=== PATIENT | male | born 1970 | race Caucasian/White ===

== ENCOUNTER 2021-01-28 08:03 | Inpatient (IN) | payer BC ==
[~2021-01-28] VITALS: Ht 180.3 cm; Wt 104.3 kg
[~2021-01-28 08:03] MED LIST: ADDERALL 5 MG TA5 M1 PO; BACTRIM DS TAB1 EACH PO; CYMBALTA60 MG PO; HYDROCODON-ACE1 EAC7 PO; HYDROCODONE-AP1 EAC6 PO; IBUPROFEN 800800 M1 PO; MOBIC7.5 M1 PO; NORCO 5-325 TA1 EACH PO; PRILOSEC20 MG PO; ROBAXIN 750 MG750 MG PO; WELLBUTRIN SR150 MG PO
[2021-01-28 08:16] VITALS: BP 137/87
[2021-01-28 08:52] LABS: ABSOLUTE LYMPHOCYTES 0.8 thou/uL (0.8-5.3); ABSOLUTE MONOCYTES 0.4 thou/uL (0.0-1.2); ABSOLUTE NEUTROPHILS 5.6 thou/uL (1.6-8.1); BASOPHILS 0.3 %; EOSINOPHILS 0.1 %; HEMATOCRIT 52.4 % (42.0-52.0); HEMOGLOBIN 17.9 gm/dL (14.0-18.0); MCH 32.5 pg (26.0-34.0); MCHC 34.2 g/dL (28.0-37.0); MCV 95.1 fL (80.0-100.0); MONOCYTES 5.4 %; MPV 8.9 fl. (7.2-11.1); NUCLEATED RBCS 0 /100WBC; PLATELET COUNT* 139 thou/uL (150-400); POLYS 82.2 %; RBC 5.51 mil/uL (4.50-6.00); RDW-CV 13.4 % (10.5-14.5); WBC 6.8 thou/uL (4.0-11.0)
[2021-01-28 08:58] LABS: CALCIUM 8.9 mg/dL (8.5-10.1); CREATININE 1.1 mg/dL (0.6-1.3); POTASSIUM 3.7 mmol/L (3.5-5.1)
[2021-01-28 09:09] LABS: ALBUMIN 3.1 g/dL (3.4-5.0); TOTAL BILIRUBIN 0.5 mg/dL (<0.1-1.0); TOTAL PROTEIN 7.8 g/dL (6.4-8.2)
--- NOTE | 2021-01-28 10:26 | EKG ---
[place] [address] ELECTROCARDIOGRAM REPORT Name: SULTANA GRAFF Room: [address] [place] [address] [facility].#: [id number] Admission: 01/28/21 Attend Phys: Lauren Gastelum Discharge: Date of : 68 Date of Service: 01/28/21822 Report #: [id number] THIS REPORT FOR: //name// [facility] ED Test Date: 2021-01-28 Test Time: 08:23:48 Pat Name: SULTANA GRAFF Department: Room: [facility] Gender: M Data Analytics Specialist: JAYY : 1970 Requested By: Mark Wilson Order Number: [id number] MD: Ricky Mendosa Measurements Intervals [place] Rate: 108 P: 30 LA: 133 QRS: -46 QRSD: 108 T: 5 QT: 336 QTc: 451 Interpretive Statements Sinus tachycardia Probable left atrial enlargement RSR' in V1 or V2, right VCD or RVH Inferior infarct, old No previous ECG available for comparison Electronically Signed On 01-28-2021 10:26:23 SOCIAL SECRETARY by Ricky Mendosa [email or web address] <ELECTRONICALLY SIGNED> By: Ricky Mendosa MD, FAC 01/28/21 1026 2 2 Ricky Mendosa MD, [facility] /EPI
[2021-01-28 15:00] VITALS: BP 140/97
[2021-01-28 17:49] VITALS: BP 158/111
[2021-01-28 22:00] VITALS: BP 149/104
[2021-01-28 23:07] VITALS: BP 149/95
[2021-01-28 23:45] VITALS: BP 144/100
[2021-01-29 04:00] VITALS: BP 145/96
[2021-01-29 04:21] LABS: HEMATOCRIT 46.7 % (42.0-52.0); MCH 32.5 pg (26.0-34.0); MCHC 34.3 g/dL (28.0-37.0); MCV 94.8 fL (80.0-100.0); MPV 8.6 fl. (7.2-11.1); RBC 4.93 mil/uL (4.50-6.00); WBC 6.5 thou/uL (4.0-11.0)
[2021-01-29 04:52] LABS: ALBUMIN 2.5 g/dL (3.4-5.0); CALCIUM 8.7 mg/dL (8.5-10.1); POTASSIUM 3.9 mmol/L (3.5-5.1); TOTAL BILIRUBIN 0.5 mg/dL (<0.1-1.0)
--- NOTE | 2021-01-29 06:13 | NUR ---
PATIENT ARRIVED ON FLOOR FROM ER AT ABOUT 2315. PATIENT ADMISSION HISTORY AND ASSESSMENT WAS COMPLETED CHARTED. PATIENT IS ON OXYGEN AT 8L HFNC. PATIENT IS NPO FOR ABD ULTRASOUND THIS MORNING. WILL CONTINUE TO MONITOR.
[2021-01-29 08:39] VITALS: BP 145/95
[2021-01-29 12:38] VITALS: BP 148/95
[2021-01-29 16:16] VITALS: BP 147/100
--- NOTE | 2021-01-29 16:35 | NUR ---
CM ASSESSMENT ASSESSMENT COMPLETED WITH PT . PT RESIDES IN HOME WITH . PT HAS NO DME, SKILLED, HH ,OR REHAB HX. PT IND WITH ADLS. PT NOT YET MED CLEAR, BUT WHEN CLEARED WILL HAVE NO CM NEEDS.
[2021-01-29 20:35] VITALS: BP 158/98
[2021-01-30 00:29] VITALS: BP 142/84
[2021-01-30 04:00] VITALS: BP 128/76
[2021-01-30 04:30] LABS: ABSOLUTE LYMPHOCYTES 0.8 thou/uL (0.8-5.3); ABSOLUTE MONOCYTES 1.1 thou/uL (0.0-1.2); ABSOLUTE NEUTROPHILS 6.9 thou/uL (1.6-8.1); BASOPHILS 0.2 %; HEMATOCRIT 45.2 % (42.0-52.0); HEMOGLOBIN 15.2 gm/dL (14.0-18.0); LYMPHOCYTES 9.5 %; MCH 32.2 pg (26.0-34.0); MCHC 33.7 g/dL (28.0-37.0); MCV 95.6 fL (80.0-100.0); MONOCYTES 12.3 %; MPV 8.7 fl. (7.2-11.1); NUCLEATED RBCS 0 /100WBC; PLATELET COUNT* 224 thou/uL (150-400); RBC 4.73 mil/uL (4.50-6.00); RDW-CV 13.3 % (10.5-14.5); WBC 8.9 thou/uL (4.0-11.0)
[2021-01-30 04:39] LABS: PREALBUMIN 13.7 mg/dL (18.0-35.7)
[2021-01-30 04:51] LABS: ALBUMIN 2.5 g/dL (3.4-5.0); CALCIUM 8.7 mg/dL (8.5-10.1); POTASSIUM 4.1 mmol/L (3.5-5.1); TOTAL BILIRUBIN 0.5 mg/dL (<0.1-1.0); TOTAL PROTEIN 6.5 g/dL (6.4-8.2)
--- NOTE | 2021-01-30 07:39 | NUR ---
PT AO X4 ON 8L NC, THIS AM PT DESATTED AND 11L WAS NEEDED TO GET SATS>90%. PT COMPLAINING OF CONGESTION IN RT NOSTRIL. MEDS AND FLUIDS PER APR. PT UP ADLIB TO TOILET WITHOUT ISSUE. CALL LIGHT IN REACH FOR PT SAFETY
[2021-01-30 12:00] VITALS: BP 149/93
--- NOTE | 2021-01-30 13:48 | NUR ---
CM FOLLOWUP PT NOT MED CLEAR. PT NOW ON 10L O2. UPON MED CLEARANCE, PT MAY NEED REFERRAL FOR AT HOME 02. CM TO FOLLOW.
[2021-01-30 21:15] VITALS: BP 126/90
[2021-01-31] VITALS: BP 163/98
[2021-01-31 03:45] LABS: ABSOLUTE LYMPHOCYTES 0.9 thou/uL (0.8-5.3); ABSOLUTE NEUTROPHILS 6.3 thou/uL (1.6-8.1); BASOPHILS 0.1 %; HEMATOCRIT 43.7 % (42.0-52.0); HEMOGLOBIN 14.9 gm/dL (14.0-18.0); MCH 32.5 pg (26.0-34.0); MCHC 34.1 g/dL (28.0-37.0); MCV 95.1 fL (80.0-100.0); MONOCYTES 11.7 %; MPV 8.2 fl. (7.2-11.1); NUCLEATED RBCS 0 /100WBC; PLATELET COUNT* 257 thou/uL (150-400); POLYS 77.2 %; RDW-CV 12.9 % (10.5-14.5); WBC 8.2 thou/uL (4.0-11.0)
[2021-01-31 03:55] LABS: ALBUMIN 2.4 g/dL (3.4-5.0); CALCIUM 8.3 mg/dL (8.5-10.1); TOTAL BILIRUBIN 0.6 mg/dL (<0.1-1.0); TOTAL PROTEIN 6.2 g/dL (6.4-8.2)
[2021-01-31 04:00] VITALS: BP 146/96
--- NOTE | 2021-01-31 05:32 | NUR ---
PT SITTING IN CHAIR WATCHING TV AT TIME OF ASSESSMENT. HE COMPLAINS OF HEADACHE FOR WHICH TYLENOL WAS GIVEN. OXYGEN NEED HAS DECREACED TO 8L NC WITH SATS MAINTAINING > 90%. PT REPORTS SLIGHT NONPRODUCTIVE COUGH. HE IS UP AD DESHAUN IN ROOM WITHOUT PROBLEM. PT MAKES NEEDS KNOWN WITH HOURLY ROUNDING. CALL LIGHT IN REACH FOR PT SAFETY
[2021-01-31 09:00] VITALS: BP 137/89
[2021-01-31 16:00] VITALS: BP 162/96
--- NOTE | 2021-01-31 16:02 | NUR ---
CM FOLLOWUP PT NOT YET MED CLEAR. PT MAY BE MED CLEAR FOR DC TOMMOROW OR THE FOLLOWING DAY. CURRENT DC PLAN TO RETURN HOME WITH . PT MAY NEED HOME O2 UPON MED CLEARANCE. CM TO FOLLOW.
[2021-01-31 20:00] VITALS: BP 142/84
[2021-02-01 00:50] VITALS: BP 146/80
[2021-02-01 04:45] VITALS: BP 151/86
[2021-02-01 05:07] LABS: HEPATITIS B SURFACE AG Negative (Negative)
--- NOTE | 2021-02-01 06:25 | NUR ---
PT RESTED INTERMITTENTLY DURING THE NOC. PT O2 SAT DECREASED TO 87-89% WHILE ASLEEP. PT OXYGEN INCREASED FROM 7L TO 10L WHILE ASLEEP. PT MAINTAINED O2 SAT 92-94% WHILE SLEEPING. PT DENIED C/O. ASSESSMENTS COMPLETED CHARTED. HOURLY ROUNDS COMPLETED. MEDICATIONS ADMINISTERED PRESCRIBED. NO ACUTE CHANGES THIS SHIFT.
[2021-02-01 07:44] VITALS: BP 136/84
[2021-02-01 10:46] LABS: ALBUMIN 2.7 g/dL (3.4-5.0); CALCIUM 8.7 mg/dL (8.5-10.1); CREATININE 0.9 mg/dL (0.6-1.3); POTASSIUM 3.5 mmol/L (3.5-5.1); TOTAL BILIRUBIN 0.9 mg/dL (<0.1-1.0)
[2021-02-01 10:48] LABS: HEMATOCRIT 46.1 % (42.0-52.0); HEMOGLOBIN 15.9 gm/dL (14.0-18.0); MCH 31.7 pg (26.0-34.0); MCHC 34.5 g/dL (28.0-37.0); MCV 91.8 fL (80.0-100.0); MPV 8.4 fl. (7.2-11.1); NUCLEATED RBCS 0 /100WBC; RBC 5.03 mil/uL (4.50-6.00); RDW-CV 12.8 % (10.5-14.5)
[2021-02-01 10:52] LABS: PLATELET COUNT* 351 thou/uL (150-400)
[2021-02-01 11:31] LABS: ABSOLUTE LYMPHOCYTES 1.3 thou/uL (0.8-5.3); ABSOLUTE MONOCYTES 0.8 thou/uL (0.0-1.2); ABSOLUTE NEUTROPHILS 10.9 thou/uL (1.6-8.1); PLATELET ESTIMATE ADEQUATE
[2021-02-01 13:12] VITALS: BP 148/97
--- NOTE | 2021-02-01 13:48 | NUR ---
CM FOLLOWUP PT MAY DC HOME 02/02/21 WITH O2 NEEDS. PT FACE SHEET AND H&P FAXED OVER TO [facility]. REST/EX TEST AND SCRIPT PENDING AND WILL NEED TO BE FAXED TO [facility]. [facility] CONTACT - PHONE: [phone]/ FAX: [phone].
[2021-02-01 16:00] VITALS: BP 153/96
[2021-02-01 20:30] VITALS: BP 165/97
[2021-02-02] VITALS: BP 4139/93
[2021-02-02 00:05] VITALS: BP 139/93
[2021-02-02 04:01] VITALS: BP 151/96
--- NOTE | 2021-02-02 05:08 | NUR ---
PT AOX4, UP AD DESHAUN. RAC IVF INFUSING PER PUMP, IV ABX GIVEN ORDERED. TELE SR. O2 5-8L HF OVERNIGHT, SATS 87-92%. UP IN CHAIR THIS MORNING. HOPING FOR DISCHARGE SOON. AM LABS. HS ACCUCHECK 122. ABLE TO USE CALL LITE AND MAKE NEEDS KNOWN.
[2021-02-02 06:34] LABS: ABSOLUTE LYMPHOCYTES 0.8 thou/uL (0.8-5.3); ABSOLUTE MONOCYTES 0.9 thou/uL (0.0-1.2); ABSOLUTE NEUTROPHILS 13.2 thou/uL (1.6-8.1); BASOPHILS 0.1 %; EOSINOPHILS 0.1 %; HEMATOCRIT 48.3 % (42.0-52.0); HEMOGLOBIN 16.3 gm/dL (14.0-18.0); LYMPHOCYTES 5.1 %; MCH 31.5 pg (26.0-34.0); MCHC 33.8 g/dL (28.0-37.0); MCV 93.3 fL (80.0-100.0); MONOCYTES 6.2 %; MPV 8.9 fl. (7.2-11.1); NUCLEATED RBCS 0 /100WBC; POLYS 88.5 %; RBC 5.17 mil/uL (4.50-6.00); RDW-CV 13.1 % (10.5-14.5); WBC 14.9 thou/uL (4.0-11.0)
[2021-02-02 06:35] LABS: PLATELET COUNT* 454 thou/uL (150-400)
[2021-02-02 06:46] LABS: ALBUMIN 2.8 g/dL (3.4-5.0); CALCIUM 8.9 mg/dL (8.5-10.1); CREATININE 0.9 mg/dL (0.6-1.3); POTASSIUM 4.1 mmol/L (3.5-5.1); TOTAL BILIRUBIN 0.8 mg/dL (<0.1-1.0); TOTAL PROTEIN 7.1 g/dL (6.4-8.2)
[2021-02-02] MEDS ORDERED: DOXYCYCLINE 10100 MG PO (10:29)
[2021-02-02] MEDS ORDERED: PROTONIX40 M2 PO (10:29)
[2021-02-02] MEDS ORDERED: PROAIR HFA8.5 GM INH (10:29)
[2021-02-02] MEDS ORDERED: DEXAMETHASONE1 MG PO (10:29)
[2021-02-02 12:30] VITALS: BP 138/91
[2021-02-02 12:32] VITALS: BP 151/96
--- NOTE | 2021-02-02 17:13 | NUR ---
PT DISCHARGED VIA WHEELCHAIR. STATES UNDERSTANDING OF DISCHARGE INSTRUCTIONS. PICKED UP BY AT EXIT.
== END 2021-02-02 16:00 | disposition home or self-care (01) | DRG 177 ==
LOC: M.ERS 08:03 → M.TBA-ER 09:18 → M.ORTHSURG 09:18
PROVIDERS: Emergency Medicine Emergency Medical Services; Internal Medicine; ADMIT Internal Medicine; ATTEND Internal Medicine
PROC: 5A0935A Assistance with Respiratory Ventilation, Less than 24 Consecutive Hours, High Flow/Velocity Cannula (ICD-10-PCS; principal; 2021-01-28)
PROC: 5A0935A Assistance with Respiratory Ventilation, Less than 24 Consecutive Hours, High Flow/Velocity Cannula (ICD-10-PCS; 2021-01-30)
PROC: 5A0935A Assistance with Respiratory Ventilation, Less than 24 Consecutive Hours, High Flow/Velocity Cannula (ICD-10-PCS; 2021-01-31)
PROC: 5A0935A Assistance with Respiratory Ventilation, Less than 24 Consecutive Hours, High Flow/Velocity Cannula (ICD-10-PCS; 2021-02-01)
DX: U07.1 COVID-19 (principal); J96.01 Acute respiratory failure with hypoxia; J12.82 Pneumonia due to coronavirus disease 2019; B17.9 Acute viral hepatitis, unspecified; E66.01 Morbid (severe) obesity due to excess calories; Z68.32 Body mass index [BMI] 32.0-32.9, adult; I10 Essential (primary) hypertension; F90.9 Attention-deficit hyperactivity disorder, unspecified type; K21.9 Gastro-esophageal reflux disease without esophagitis

== ENCOUNTER 2021-02-04 16:25 | Inpatient (IN) | payer BC ==
[~2021-02-04] VITALS: Ht 152.4 cm; Wt 81.0 kg
--- NOTE | ~2021-02-04 | CON ---
[address] [address] CONSULTATION Name: SULTANA GRAFF Room: [address] IN M.R.#: [id number] Admission: 02/04/21 Attend Phys: Bala Ann MD Discharge: Date of : 68 Report #: [id number] THIS REPORT FOR: cc: Keri Gale MD, Tuongvan T. MD Namin, Farid M. MD ~ cc: Keri Gale MD, Edgar Hwang MD DATE OF CONSULTATION: 02/15/2021 REQUESTING PHYSICIAN: Bala Ann MD REASON FOR CONSULTATION: Ileus and constipation. HISTORY OF PRESENT ILLNESS: This is a 51-year-old male who initially presented to [facility] with respiratory distress. The patient was diagnosed with COVID pneumonia and was admitted. He also developed pulmonary embolism during this hospitalization for which he has been treated. The patient had respiratory failure, which resulted in intubation. He is currently in prone position and is intubated and sedated. Based on nursing report, the patient is receiving tube feeding at a rate of 20 mL per hour. There was residual of 600 mL in the stomach. He also has not had any bowel movement for the past 10 days. PAST MEDICAL HISTORY: Significant for history of PE, COVID pneumonia, viral sepsis, respiratory failure, anxiety, ADHD, GERD. ALLERGIES: No known drug allergy. MEDICATIONS: Please refer to MAR. SOCIAL HISTORY: The patient has history of tobaccoism. There is no report of alcohol use. FAMILY HISTORY: Noncontributory. PHYSICAL EXAMINATION: VITAL SIGNS: Blood pressure of 124/77, respirations 17, pulse 74, temperature 97.5. GENERAL: The patient is intubated and in prone position. LUNGS: Bilateral air movement noted. Crackles at the bases. CARDIOVASCULAR: Regular rate. ABDOMEN: Soft. Bowel sounds are hypoactive. NEUROLOGIC: The patient [place] [address] CONSULTATION Name: SULTANA GRAFF [place] Room: [address] IN [facility]#: [id number] Admission: 02/04/21 Attend Phys: Bala Ann MD Discharge: Date of : 68 Report #: [id number] LABORATORY DATA: Reveal sodium of 143, potassium 3.9, BUN is 40, creatinine 0.8, glucose 220, AST is 30, ALT is 80, alkaline phosphatase 120, total bilirubin is 0.7. WBC is 15.3, hemoglobin is 13.4, platelet is 219. IMAGING DATA: Abdominal x-ray was obtained, which revealed gas throughout the bowel and the colon without any evidence of obstruction. ASSESSMENT AND PLAN: The patient with gastric residual of 600 mL, who is on Reglan 10 mg q. 8 hours. We will increase the motility agents and increase the frequency of Reglan to q.i.d. and also add erythromycin 250 mg IV q. 8 hours. I will give him mag citrate 10 ounces q. 12 hours b.i.d. and to evaluate his response. We will closely follow up the patient in this hospital late during this hospitalization. By: 1455 1910Disha Marin MD /nt
[~2021-02-04 16:25] MED LIST changes: +DEXAMETHASONE1 MG PO; +DOXYCYCLINE 10100 MG PO; +PROAIR HFA8.5 GM INH; +PROTONIX40 M2 PO
[2021-02-04 16:36] VITALS: BP 186/85
[2021-02-04] MEDS ORDERED: CYMBALTA20 MG PO (16:41)
[2021-02-04 17:20] LABS: ABSOLUTE LYMPHOCYTES 0.5 thou/uL (0.8-5.3); ABSOLUTE MONOCYTES 0.8 thou/uL (0.0-1.2); ABSOLUTE NEUTROPHILS 18.3 thou/uL (1.6-8.1); BASOPHILS 0.2 %; EOSINOPHILS 0.2 %; HEMATOCRIT 50.7 % (42.0-52.0); LYMPHOCYTES 2.4 %; MCH 31.9 pg (26.0-34.0); MCHC 33.5 g/dL (28.0-37.0); MCV 95.2 fL (80.0-100.0); MONOCYTES 4.2 %; MPV 8.5 fl. (7.2-11.1); NUCLEATED RBCS 0 /100WBC; RBC 5.32 mil/uL (4.50-6.00); RDW-CV 13.2 % (10.5-14.5); WBC 19.6 thou/uL (4.0-11.0)
[2021-02-04 17:21] LABS: PLATELET COUNT* 400 thou/uL (150-400)
[2021-02-04 18:04] LABS: POTASSIUM 3.9 mmol/L (3.5-5.1); TOTAL BILIRUBIN 1.5 mg/dL (<0.1-1.0); TOTAL PROTEIN 6.7 g/dL (6.4-8.2)
[2021-02-04 18:28] LABS: ALBUMIN 2.3 g/dL (3.4-5.0); CREATININE 0.8 mg/dL (0.6-1.3)
[2021-02-04 19:37] LABS: BE -2.8 mmol/L (-2 to +3); PO2 66.8 mmHg (75.0-100.0); pH 7.443 (7.340-7.450)
[2021-02-04 22:39] VITALS: BP 123/76
[2021-02-05] VITALS (14 sets, daily range): BP systolic 105–133; BP diastolic 63–85
[2021-02-05 04:08] LABS: HEMATOCRIT 44.7 % (42.0-52.0); HEMOGLOBIN 15.3 gm/dL (14.0-18.0); MCHC 34.3 g/dL (28.0-37.0); MCV 93.3 fL (80.0-100.0); MPV 8.9 fl. (7.2-11.1); NUCLEATED RBCS 0 /100WBC; RBC 4.79 mil/uL (4.50-6.00); WBC 13.2 thou/uL (4.0-11.0)
[2021-02-05 04:11] LABS: PLATELET COUNT* 185 thou/uL (150-400)
[2021-02-05 04:33] LABS: ABSOLUTE LYMPHOCYTES 0.5 thou/uL (0.8-5.3); ABSOLUTE MONOCYTES 0.4 thou/uL (0.0-1.2); ABSOLUTE NEUTROPHILS 12.3 thou/uL (1.6-8.1)
[2021-02-05 04:34] LABS: PLATELET ESTIMATE ADEQUATE
[2021-02-05 04:55] LABS: CALCIUM 8.9 mg/dL (8.5-10.1); POTASSIUM 4.4 mmol/L (3.5-5.1)
--- NOTE | 2021-02-05 09:49 | EKG ---
[place] [address] ELECTROCARDIOGRAM REPORT Name: SULTANA GRAFF Room: [place] [address] ADM IN [facility]#: [id number] Admission: 02/04/21 Attend Phys: Bala Ann, Discharge: Date of : 68 Date of Service: 02/04/21 1650 Report #: [id number] THIS REPORT FOR: //name// [facility] ED Test Date: 2021-02-04 Test Time: 16:50:15 Pat Name: SULTANA GRAFF Department: Room: [facility] Gender: M Director Of Claims: ANDREA : 1970 Requested By: Mark Wilson Order Number: [id number] MD: Lion Nunez Measurements Intervals [place] Rate: 115 P: [place]: QRS: -39 QRSD: 106 T: -14 QT: 319 QTc: 442 Interpretive Statements Sinus tachycaradia RSR' in V1 or V2, right VCD Inferior infarct, old Artifact in lead(s) I,II,aVR,aVL,aVF,V3,V5,V6 Compared to ECG 01/28/2021 08:23:48 Myocardial infarct finding still present Electronically Signed On 02-05-2021 9:48:57 DEFECT CUTTER by Lion Nunez [email or web address] <ELECTRONICALLY SIGNED> By: Lion Nunez MD, [facility] 02/05/21 0948 165 165 Lion Nunez MD, [facility] /EPI
[2021-02-06] VITALS (39 sets, daily range): BP systolic 88–199; BP diastolic 59–133
[2021-02-06 03:33] LABS: ABSOLUTE LYMPHOCYTES 0.7 thou/uL (0.8-5.3); ABSOLUTE MONOCYTES 0.8 thou/uL (0.0-1.2); ABSOLUTE NEUTROPHILS 20.6 thou/uL (1.6-8.1); BASOPHILS 0.2 %; HEMATOCRIT 42.9 % (42.0-52.0); HEMOGLOBIN 14.8 gm/dL (14.0-18.0); LYMPHOCYTES 3.2 %; MCHC 34.6 g/dL (28.0-37.0); MCV 92.5 fL (80.0-100.0); MONOCYTES 3.7 %; MPV 9.1 fl. (7.2-11.1); NUCLEATED RBCS 0 /100WBC; PLATELET COUNT* 229 thou/uL (150-400); POLYS 92.9 %; RBC 4.64 mil/uL (4.50-6.00); WBC 22.2 thou/uL (4.0-11.0)
[2021-02-06 03:51] LABS: APTT 24.5 Seconds (25.0-31.3); INR 1.1; PROTIME 11.7 Seconds (9.20-11.50)
[2021-02-06 04:31] LABS: ALBUMIN 2.6 g/dL (3.4-5.0); CREATININE 1.1 mg/dL (0.6-1.3); MAGNESIUM 2.4 mg/dL (1.8-2.4); POTASSIUM 4.5 mmol/L (3.5-5.1); TOTAL BILIRUBIN 0.8 mg/dL (<0.1-1.0); TOTAL PROTEIN 6.4 g/dL (6.4-8.2)
[2021-02-06 10:05] LABS: BE -1.7 mmol/L (-2 to +3); PCO2 34.7 mmHg (35.0-45.0); pH 7.419 (7.340-7.450)
[2021-02-06 10:08] LABS: PO2 51.1 mmHg (75.0-100.0)
--- NOTE | 2021-02-06 13:30 | CON ---
[address] [address] CONSULTATION Name: SULTANA GRAFF Room: [address] IN M.R.#: [id number] Admission: 02/04/21 Attend Phys: Bala Ann MD Discharge: Date of : 68 Report #: [id number] THIS REPORT FOR: cc: Keri Gale MD, Tuongvan T. MD Pervez, Adeel MD ~ DATE OF CONSULTATION: 02/05/2021 Consult has been requested by Dr. Bala Ann. INDICATION FOR CONSULTATION: Acute hypoxemic respiratory failure secondary to COVID-19. HISTORY OF PRESENT ILLNESS: This is a 50-year-old gentleman. He was recently admitted to this hospital with COVID in order to go home for [place]. He does have a history of smoking. He went home on up to 9 liters of oxygen. He is now here with worsening respiratory distress, currently is barely saturating around 92% on 100% FiO2 with a heated high-flow nasal cannula. Throughout the night, he was in fact on BiPAP and was not tolerating being off. There is only scanty sputum production. He does not have significant swelling of lower extremities. He currently does not have upper respiratory complaints. REVIEW OF SYSTEMS: His review of systems for 12 points is negative except as mentioned above. PAST MEDICAL HISTORY: COVID-19 as above, ADHD, gastroesophageal reflux disease; meniscus tear, left knee. SOCIAL HISTORY: Extensive history of smoking, still smokes. Also, chews tobacco. Has a history of alcohol use, unable to quantify. There is no documentation of excessive alcohol use. CURRENT MEDICATIONS: List in [facility] reviewed. HOME MEDICATIONS: List also in [facility] reviewed. FAMILY HISTORY: No pertinent family history. PHYSICAL EXAMINATION: GENERAL: He is alert, awake and oriented. VITAL SIGNS: His vitals are in the records reviewed. HEENT: Head is normocephalic and atraumatic. NECK: Does not show raised JVP. CHEST: Breath sounds are bilaterally equal. No added sounds. HEART: Regular[place] [address] CONSULTATION Name: SULTANA GRAFF [place] Room: [address] IN [facility]#: [id number] Admission: 02/04/21 Attend Phys: Bala Ann MD Discharge: Date of : 68 Report #: [id number] ABDOMEN: Soft and nontender. EXTREMITIES: Lower extremities, minimal edema, no calf tenderness. LABORATORY DATA: Chest x-rays in [facility] reviewed. ASSESSMENT/PLAN: 1. Acute hypoxemic respiratory failure secondary to COVID-19. Continue BiPAP while asleep and as needed otherwise heated high-flow nasal cannula. 2. COVID-19, agree with Actemra, increased dexamethasone to 10 b.i.d. He has not received remdesivir due to LFTs being elevated. 3. Pulmonary infiltrates. He recently received doxycycline, which will make it unlikely that he has atypical infection, currently on vancomycin and cefepime. I agree with the current selection. 4. History of smoking/possible chronic obstructive pulmonary disease, DuoNeb, also on steroids as above. 5. Fluid and electrolytes. I will try to run him on the drum drier side. Considering severe hypoxemia. If we give him albumin, he may be able to tolerate a larger dose of Lasix and therefore, 25 g of albumin with 80 of Lasix are ordered. If sodium rises as a result, we will address. 6. Hyperglycemia, insulin sliding scale. 7. Gastroesophageal reflux disease, proton pump inhibitor. 8. Deep venous thrombosis prophylaxis, intermediate dose Lovenox. 9. Evaluation for thromboembolic phenomena. Check venous Dopplers and echo. 10. Clostridium difficile prophylaxis, Lactinex. The patient is critically ill at this time. Total time spent providing critical care to this patient today exceeds 42 minutes. <ELECTRONICALLY SIGNED> By: Edgar Hwang MD 02/06/21 1330 1211 1400Edgar Hwang MD /nt
[2021-02-06 15:07] LABS: BE -6.4 mmol/L (-2 to +3); PCO2 40.5 mmHg (35.0-45.0); pH 7.301 (7.340-7.450)
[2021-02-06 15:15] LABS: PO2 49.6 mmHg (75.0-100.0)
[2021-02-07] VITALS (55 sets, daily range): BP systolic 66–137; BP diastolic 42–76
[2021-02-07 03:34] LABS: ABSOLUTE LYMPHOCYTES 0.5 thou/uL (0.8-5.3); ABSOLUTE MONOCYTES 0.8 thou/uL (0.0-1.2); ABSOLUTE NEUTROPHILS 17.2 thou/uL (1.6-8.1); BASOPHILS 0.1 %; HEMATOCRIT 45.4 % (42.0-52.0); HEMOGLOBIN 15.1 gm/dL (14.0-18.0); LYMPHOCYTES 2.4 %; MCH 31.8 pg (26.0-34.0); MCHC 33.3 g/dL (28.0-37.0); MCV 95.4 fL (80.0-100.0); MONOCYTES 4.3 %; MPV 9.2 fl. (7.2-11.1); NUCLEATED RBCS 0 /100WBC; PLATELET COUNT* 207 thou/uL (150-400); POLYS 93.2 %; RBC 4.75 mil/uL (4.50-6.00); RDW-CV 12.9 % (10.5-14.5); WBC 18.5 thou/uL (4.0-11.0)
[2021-02-07 03:55] LABS: ALBUMIN 2.5 g/dL (3.4-5.0); CALCIUM 8.7 mg/dL (8.5-10.1); CREATININE 1.1 mg/dL (0.6-1.3); MAGNESIUM 2.7 mg/dL (1.8-2.4); POTASSIUM 4.8 mmol/L (3.5-5.1); TOTAL BILIRUBIN 0.5 mg/dL (<0.1-1.0); TOTAL PROTEIN 6.4 g/dL (6.4-8.2)
[2021-02-07 08:20] LABS: BE -4.9 mmol/L (-2 to +3)
[2021-02-07 08:26] LABS: pH 7.298 (7.340-7.450)
[2021-02-07 08:27] LABS: PO2 58.5 mmHg (75.0-100.0)
--- NOTE | 2021-02-07 16:59 | 2DMMODE ---
[place] [address] 2 D/M-MODE ECHOCARDIOGRAM Name: SULTANA GRAFF [place] Room: [address] ADM IN M.R.#: [id number] Admission: 02/04/21 Attend Phys: Bala Ann, Discharge: Date of : 68 Date of Service: 02/07/21 1658 Report #: [id number] THIS REPORT FOR: cc: Keri Gale MD, Tuongvan T. MD Liston, Michael J. MD [facility] ~ APPROVED REPORT Study performed: 02/07/2021 15:57:24 EXAM: Comprehensive 2D, Doppler, and color-flow Echocardiogram Patient Location: In-Patient Room #: 002 Status: routine BSA: 2.14 HR: 114 bpm BP: 112/60 mmHg Rhythm: NSR Other Information Technically limited study due to body habitus. Indications Dyspnea 2D Dimensions IVSd: 13.77 (7-11mm) LVOT Diam: 23.14 (18-24mm) LVDd: 39.08 mm PWd: 11.14 (7-11mm) Ascending Ao: 28.28 (22-36mm) LVDs: 22.96 (25-40mm) Aortic Root: 34.33 mm Aortic Valve AoV Peak Jonas.: 1.23 m/s AO Peak Gr.: 6.02 mmHg LVOT Max P.02 mmHg AO Mean Gr.: 3.45 mmHg LVOT Mean P.42 mmHg LVOT Max V: 0.87 m/s AO V2 VTI: 17.83 cm LVOT Mean V: 0.56 m/s JOAN (VTI): 3.08 cm2 LVOT V1 VTI: 13.07 cm Mitral Valve E/A Ratio: 1.10 MV Decel. Time: 167.33 ms MV E Max Jonas.: 0.74 m/[place] [address] 2 D/M-MODE ECHOCARDIOGRAM Name: SULTANA GRAFF [place] Room: [address] IN [facility].#: [id number] Admission: 02/04/21 Attend Phys: Bala Ann, Discharge: Date of : 68 Date of Service: 02/07/21 1658 Report #: [id number] MV PHT: 48.53 ms MVA (PHT): 4.53 cm2 Pulmonary Valve PV Peak Jonas.: 1.38 m/s PV Peak Gr.: 7.58 mmHg Tricuspid Valve RAP Estimate: 5.00 mmHg TR Peak Gr.: 47.97 mmHg RVSP: 52.00 mmHg PA Pressure: 52.00 mmHg Left Ventricle The left ventricle is normal size. There is normal LV segmental wall motion. Mild concentric left ventricular hypertrophy. Left ventricular systolic function is hyperdynamic. LVEF is >70%. This study is not technically sufficient to allow evaluation of the LV diastolic function. Right Ventricle The right ventricle is normal size. The right ventricular systolic function is normal. Atria The left atrium size is normal. The right atrium size is normal. Aortic Valve The Aortic valve is sclerotic. No aortic regurgitation is present. There is no aortic valvular stenosis. Mitral Valve The mitral valve is normal in structure. There is no mitral valve regurgitation noted. No evidence of mitral valve stenosis. Tricuspid Valve The tricuspid valve is normal in structure. Mild tricuspid regurgitation. Moderate pulmonary hypertension. The RVSP is 50-55 mmHg. Pulmonic Valve The pulmonary valve is normal in structure. There is no pulmonic valvular regurgitation. Great Vessels The aortic root is normal in size. IVC is normal in size and collapses >50% [place] [address] 2 D/M-MODE ECHOCARDIOGRAM Name: SULTANA GRAFF Room: [address] IN [facility]#: [id number] Admission: 02/04/21 Attend Phys: Blaa Ann, Discharge: Date of : 68 Date of Service: 02/07/21 1658 Report #: [id number] Pericardium There is no pericardial effusion. <Conclusion> The left ventricle is normal size. Mild concentric left ventricular hypertrophy. Left ventricular systolic function is hyperdynamic. LVEF is >70%. There is normal LV segmental wall motion. The Aortic valve is sclerotic. Mild tricuspid regurgitation. Moderate pulmonary hypertension. The RVSP is 50-55 mmHg. IVC is normal in size and collapses >50% with inspiration. <ELECTRONICALLY SIGNED> By: Eitan Gore MD, FACC 02/07/211657 57 57 Eitan Gore MD, FACC /INF
[2021-02-07 18:18] LABS: BE -8.9 mmol/L (-2 to +3); PO2 71.8 mmHg (75.0-100.0)
[2021-02-07 18:27] LABS: PCO2 73.4 mmHg (35.0-45.0)
[2021-02-07 18:30] LABS: pH 7.106 (7.340-7.450)
[2021-02-07 21:14] LABS: CALCIUM 8.8 mg/dL (8.5-10.1); CREATININE 1.4 mg/dL (0.6-1.3); MAGNESIUM 3.1 mg/dL (1.8-2.4); POTASSIUM 5.3 mmol/L (3.5-5.1)
[2021-02-08] VITALS (56 sets, daily range): BP systolic 96–167; BP diastolic 48–93
[2021-02-08 00:23] LABS: PO2 79.2 mmHg (75.0-100.0)
[2021-02-08 00:24] LABS: PCO2 75.7 mmHg (35.0-45.0); pH 7.097 (7.340-7.450)
[2021-02-08 04:29] LABS: ABSOLUTE BASOPHILS 0.1 thou/uL (0.0-0.2); ABSOLUTE LYMPHOCYTES 0.5 thou/uL (0.8-5.3); ABSOLUTE MONOCYTES 2.3 thou/uL (0.0-1.2); ABSOLUTE NEUTROPHILS 28.4 thou/uL (1.6-8.1); BASOPHILS 0.3 %; HEMOGLOBIN 15.7 gm/dL (14.0-18.0); LYMPHOCYTES 1.5 %; MCH 31.7 pg (26.0-34.0); MCHC 32.8 g/dL (28.0-37.0); MCV 96.7 fL (80.0-100.0); MONOCYTES 7.2 %; MPV 8.8 fl. (7.2-11.1); NUCLEATED RBCS 0 /100WBC; PLATELET COUNT* 296 thou/uL (150-400); RBC 4.97 mil/uL (4.50-6.00); RDW-CV 13.1 % (10.5-14.5); WBC 31.2 thou/uL (4.0-11.0)
[2021-02-08 04:44] LABS: ALBUMIN 2.6 g/dL (3.4-5.0); CALCIUM 8.4 mg/dL (8.5-10.1); CREATININE 1.3 mg/dL (0.6-1.3); MAGNESIUM 2.8 mg/dL (1.8-2.4); POTASSIUM 5.3 mmol/L (3.5-5.1); TOTAL BILIRUBIN 0.5 mg/dL (<0.1-1.0); TOTAL PROTEIN 6.4 g/dL (6.4-8.2)
[2021-02-08 04:49] LABS: PHOSPHORUS* 6.1 mg/dL (2.5-4.9)
[2021-02-08 07:48] LABS: PO2 81.2 mmHg (75.0-100.0)
[2021-02-08 07:52] LABS: pH 7.147 (7.340-7.450)
[2021-02-08 07:53] LABS: PCO2 66.3 mmHg (35.0-45.0)
[2021-02-08 14:20] LABS: BE -0.1 mmol/L (-2 to +3); pH 7.378 (7.340-7.450)
[2021-02-08 14:29] LABS: PO2 57.1 mmHg (75.0-100.0)
[2021-02-08 17:56] LABS: BE -0.2 mmol/L (-2 to +3); PCO2 48.6 mmHg (35.0-45.0); pH 7.348 (7.340-7.450)
[2021-02-08 17:59] LABS: PO2 48.2 mmHg (75.0-100.0)
[2021-02-08 19:05] LABS: ABSOLUTE LYMPHOCYTES 0.3 thou/uL (0.8-5.3); ABSOLUTE MONOCYTES 1.1 thou/uL (0.0-1.2); BASOPHILS 0.2 %; HEMATOCRIT 42.1 % (42.0-52.0); HEMOGLOBIN 14.1 gm/dL (14.0-18.0); LYMPHOCYTES 1.4 %; MCH 31.7 pg (26.0-34.0); MCHC 33.5 g/dL (28.0-37.0); MCV 94.6 fL (80.0-100.0); MONOCYTES 5.8 %; NUCLEATED RBCS 0 /100WBC; POLYS 92.6 %; RBC 4.45 mil/uL (4.50-6.00); RDW-CV 13.1 % (10.5-14.5); WBC 19.4 thou/uL (4.0-11.0)
[2021-02-08 19:07] LABS: PLATELET COUNT* 189 thou/uL (150-400)
[2021-02-08 19:16] LABS: MAGNESIUM 2.6 mg/dL (1.8-2.4); POTASSIUM 4.4 mmol/L (3.5-5.1)
[2021-02-08 20:46] LABS: BE -0.8 mmol/L (-2 to +3); PO2 66.7 mmHg (75.0-100.0)
[2021-02-08 20:50] LABS: pH 7.287 (7.340-7.450)
[2021-02-08 20:51] LABS: PCO2 58.1 mmHg (35.0-45.0)
[2021-02-09] VITALS (47 sets, daily range): BP systolic 99–154; BP diastolic 47–81
[2021-02-09 06:21] LABS: ABSOLUTE LYMPHOCYTES 0.3 thou/uL (0.8-5.3); ABSOLUTE MONOCYTES 0.7 thou/uL (0.0-1.2); ABSOLUTE NEUTROPHILS 17.8 thou/uL (1.6-8.1); BASOPHILS 0.2 %; HEMATOCRIT 42.7 % (42.0-52.0); HEMOGLOBIN 14.2 gm/dL (14.0-18.0); LYMPHOCYTES 1.5 %; MCH 32.1 pg (26.0-34.0); MCHC 33.3 g/dL (28.0-37.0); MCV 96.3 fL (80.0-100.0); MONOCYTES 3.9 %; MPV 9.4 fl. (7.2-11.1); NUCLEATED RBCS 0 /100WBC; PLATELET COUNT* 222 thou/uL (150-400); POLYS 94.4 %; RBC 4.44 mil/uL (4.50-6.00); RDW-CV 13.3 % (10.5-14.5); WBC 18.9 thou/uL (4.0-11.0)
[2021-02-09 06:37] LABS: PHOSPHORUS* 3.5 mg/dL (2.5-4.9)
[2021-02-09 09:46] LABS: BE -3.7 mmol/L (-2 to +3); PO2 70.3 mmHg (75.0-100.0)
[2021-02-09 09:51] LABS: PCO2 54.2 mmHg (35.0-45.0); pH 7.264 (7.340-7.450)
[2021-02-09 15:12] LABS: ALBUMIN 2.5 g/dL (3.4-5.0); CALCIUM 8.2 mg/dL (8.5-10.1); CREATININE 1.1 mg/dL (0.6-1.3); MAGNESIUM 2.7 mg/dL (1.8-2.4); POTASSIUM 4.3 mmol/L (3.5-5.1); TOTAL BILIRUBIN 0.4 mg/dL (<0.1-1.0); TOTAL PROTEIN 5.4 g/dL (6.4-8.2)
[2021-02-09 18:14] LABS: BE -1.6 mmol/L (-2 to +3); PO2 79.3 mmHg (75.0-100.0)
[2021-02-09 18:22] LABS: PCO2 67.1 mmHg (35.0-45.0); pH 7.232 (7.340-7.450)
[2021-02-10] VITALS (84 sets, daily range): BP systolic 94–131; BP diastolic 50–85
[2021-02-10 04:31] LABS: HEMOGLOBIN 12.8 gm/dL (14.0-18.0); MCH 31.6 pg (26.0-34.0); MCHC 32.9 g/dL (28.0-37.0); MCV 96.1 fL (80.0-100.0); MPV 9.3 fl. (7.2-11.1); NUCLEATED RBCS 0 /100WBC; PLATELET COUNT* 190 thou/uL (150-400); RBC 4.06 mil/uL (4.50-6.00); RDW-CV 12.5 % (10.5-14.5); WBC 16.5 thou/uL (4.0-11.0)
[2021-02-10 04:52] LABS: ALBUMIN 2.4 g/dL (3.4-5.0); CREATININE 0.9 mg/dL (0.6-1.3); MAGNESIUM 2.7 mg/dL (1.8-2.4); POTASSIUM 4.3 mmol/L (3.5-5.1); TOTAL BILIRUBIN 0.4 mg/dL (<0.1-1.0); TOTAL PROTEIN 5.1 g/dL (6.4-8.2)
[2021-02-10 06:10] LABS: ABSOLUTE LYMPHOCYTES 0.3 thou/uL (0.8-5.3); ABSOLUTE MONOCYTES 0.8 thou/uL (0.0-1.2); ABSOLUTE NEUTROPHILS 15.3 thou/uL (1.6-8.1); PLATELET ESTIMATE ADEQUATE
[2021-02-10 12:33] LABS: BE -3.5 mmol/L (-2 to +3); PCO2 VENOUS 34.8 mmHg (41.0-51.0); PO2 VENOUS 76.2 mmHg (35.0-45.0)
[2021-02-11] VITALS (94 sets, daily range): BP systolic 88–130; BP diastolic 52–81
[2021-02-11 04:45] LABS: ABSOLUTE LYMPHOCYTES 0.3 thou/uL (0.8-5.3); ABSOLUTE MONOCYTES 0.8 thou/uL (0.0-1.2); ABSOLUTE NEUTROPHILS 18.6 thou/uL (1.6-8.1); BASOPHILS 0.2 %; HEMATOCRIT 39.1 % (42.0-52.0); HEMOGLOBIN 13.2 gm/dL (14.0-18.0); LYMPHOCYTES 1.7 %; MCH 31.7 pg (26.0-34.0); MCHC 33.7 g/dL (28.0-37.0); MCV 94.1 fL (80.0-100.0); MPV 9.2 fl. (7.2-11.1); NUCLEATED RBCS 0 /100WBC; PLATELET COUNT* 206 thou/uL (150-400); POLYS 94.1 %; RBC 4.16 mil/uL (4.50-6.00); RDW-CV 12.9 % (10.5-14.5); WBC 19.7 thou/uL (4.0-11.0)
[2021-02-11 04:59] LABS: PHOSPHORUS* 3.6 mg/dL (2.5-4.9)
[2021-02-11 06:33] LABS: ALBUMIN 2.7 g/dL (3.4-5.0); CALCIUM 8.6 mg/dL (8.5-10.1); MAGNESIUM 2.7 mg/dL (1.8-2.4); POTASSIUM 5.6 mmol/L (3.5-5.1); TOTAL BILIRUBIN 0.4 mg/dL (<0.1-1.0); TOTAL PROTEIN 5.3 g/dL (6.4-8.2)
[2021-02-11 16:19] LABS: BE 2.4 mmol/L (-2 to +3); PCO2 VENOUS 58.2 mmHg (41.0-51.0); PO2 VENOUS 49.9 mmHg (35.0-45.0)
[2021-02-11 23:06] LABS: MYCOPLASMA PNEUMONIA IgG <100 U/mL (0-99); MYCOPLASMA PNEUMONIA IgM <770 U/mL (0-769)
[2021-02-12] VITALS (98 sets, daily range): BP systolic 99–193; BP diastolic 55–102
[2021-02-12 06:01] LABS: ABSOLUTE LYMPHOCYTES 0.4 thou/uL (0.8-5.3); ABSOLUTE MONOCYTES 0.9 thou/uL (0.0-1.2); ABSOLUTE NEUTROPHILS 18.5 thou/uL (1.6-8.1); BASOPHILS 0.1 %; HEMATOCRIT 40.8 % (42.0-52.0); HEMOGLOBIN 13.3 gm/dL (14.0-18.0); LYMPHOCYTES 1.8 %; MCH 31.4 pg (26.0-34.0); MCHC 32.7 g/dL (28.0-37.0); MCV 96.1 fL (80.0-100.0); MONOCYTES 4.7 %; MPV 9.1 fl. (7.2-11.1); NUCLEATED RBCS 0 /100WBC; PLATELET COUNT* 230 thou/uL (150-400); POLYS 93.4 %; RBC 4.24 mil/uL (4.50-6.00); RDW-CV 12.9 % (10.5-14.5); WBC 19.8 thou/uL (4.0-11.0)
[2021-02-12 06:10] LABS: CALCIUM 8.2 mg/dL (8.5-10.1); CREATININE 0.9 mg/dL (0.6-1.3); MAGNESIUM 2.6 mg/dL (1.8-2.4); POTASSIUM 4.6 mmol/L (3.5-5.1); TOTAL BILIRUBIN 0.7 mg/dL (<0.1-1.0); TOTAL PROTEIN 5.6 g/dL (6.4-8.2)
[2021-02-12 06:57] LABS: PREALBUMIN 49.3 mg/dL (18.0-35.7)
[2021-02-12 06:59] LABS: PHOSPHORUS* 4.8 mg/dL (2.5-4.9)
[2021-02-12 14:17] LABS: BE 5.1 mmol/L (-2 to +3); PCO2 VENOUS 64.7 mmHg (41.0-51.0)
[2021-02-13] VITALS (82 sets, daily range): BP systolic 104–168; BP diastolic 63–104
[2021-02-13 04:48] LABS: ABSOLUTE LYMPHOCYTES 0.4 thou/uL (0.8-5.3); ABSOLUTE MONOCYTES 1.2 thou/uL (0.0-1.2); ABSOLUTE NEUTROPHILS 17.3 thou/uL (1.6-8.1); BASOPHILS 0.1 %; HEMATOCRIT 38.1 % (42.0-52.0); HEMOGLOBIN 12.5 gm/dL (14.0-18.0); MCH 31.7 pg (26.0-34.0); MCV 96.1 fL (80.0-100.0); MONOCYTES 6.1 %; MPV 9.3 fl. (7.2-11.1); NUCLEATED RBCS 0 /100WBC; PLATELET COUNT* 222 thou/uL (150-400); POLYS 91.8 %; RBC 3.96 mil/uL (4.50-6.00); RDW-CV 13.2 % (10.5-14.5); WBC 18.9 thou/uL (4.0-11.0)
[2021-02-13 05:08] LABS: ALBUMIN 3.1 g/dL (3.4-5.0); CALCIUM 8.3 mg/dL (8.5-10.1); CREATININE 0.9 mg/dL (0.6-1.3); MAGNESIUM 2.4 mg/dL (1.8-2.4); POTASSIUM 4.1 mmol/L (3.5-5.1); TOTAL BILIRUBIN 0.8 mg/dL (<0.1-1.0); TOTAL PROTEIN 5.4 g/dL (6.4-8.2)
[2021-02-13 07:59] LABS: BE 3.4 mmol/L (-2 to +3); PO2 102.8 mmHg (75.0-100.0); pH 7.373 (7.340-7.450)
[2021-02-13 08:01] LABS: PCO2 52.4 mmHg (35.0-45.0)
[2021-02-14] VITALS (64 sets, daily range): BP systolic 108–168; BP diastolic 63–106
[2021-02-14 04:31] LABS: ABSOLUTE LYMPHOCYTES 0.4 thou/uL (0.8-5.3); ABSOLUTE NEUTROPHILS 19.1 thou/uL (1.6-8.1); BASOPHILS 0.1 %; EOSINOPHILS 0.1 %; HEMATOCRIT 39.9 % (42.0-52.0); HEMOGLOBIN 13.2 gm/dL (14.0-18.0); MCH 31.9 pg (26.0-34.0); MCV 96.7 fL (80.0-100.0); MPV 9.1 fl. (7.2-11.1); NUCLEATED RBCS 0 /100WBC; PLATELET COUNT* 222 thou/uL (150-400); POLYS 92.8 %; RBC 4.12 mil/uL (4.50-6.00); WBC 20.6 thou/uL (4.0-11.0)
[2021-02-14 06:16] LABS: ALBUMIN 3.6 g/dL (3.4-5.0); CREATININE 0.8 mg/dL (0.6-1.3); POTASSIUM 4.4 mmol/L (3.5-5.1); TOTAL BILIRUBIN 0.9 mg/dL (<0.1-1.0)
[2021-02-15] VITALS (62 sets, daily range): BP systolic 99–157; BP diastolic 57–98
[2021-02-15 05:44] LABS: HEMATOCRIT 40.6 % (42.0-52.0); HEMOGLOBIN 13.4 gm/dL (14.0-18.0); MCH 31.8 pg (26.0-34.0); MCV 96.3 fL (80.0-100.0); MPV 9.2 fl. (7.2-11.1); NUCLEATED RBCS 0 /100WBC; PLATELET COUNT* 219 thou/uL (150-400); RBC 4.21 mil/uL (4.50-6.00); RDW-CV 13.3 % (10.5-14.5); WBC 15.3 thou/uL (4.0-11.0)
[2021-02-15 06:26] LABS: ABSOLUTE NEUTROPHILS 14.1 thou/uL (1.6-8.1)
[2021-02-15 06:27] LABS: ABSOLUTE LYMPHOCYTES 0.6 thou/uL (0.8-5.3); ABSOLUTE MONOCYTES 0.6 thou/uL (0.0-1.2); PLATELET ESTIMATE ADEQUATE
[2021-02-15 06:46] LABS: ALBUMIN 3.3 g/dL (3.4-5.0); CALCIUM 8.5 mg/dL (8.5-10.1); CREATININE 0.8 mg/dL (0.6-1.3); POTASSIUM 3.9 mmol/L (3.5-5.1); TOTAL BILIRUBIN 0.7 mg/dL (<0.1-1.0); TOTAL PROTEIN 5.6 g/dL (6.4-8.2)
[2021-02-15 11:01] LABS: BE 4.5 mmol/L (-2 to +3); PO2 71.2 mmHg (75.0-100.0); pH 7.393 (7.340-7.450)
[2021-02-15 11:05] LABS: PCO2 51.6 mmHg (35.0-45.0)
[2021-02-16] VITALS (64 sets, daily range): BP systolic 93–172; BP diastolic 55–100
[2021-02-16 05:43] LABS: ABSOLUTE LYMPHOCYTES 0.3 thou/uL (0.8-5.3); ABSOLUTE MONOCYTES 0.5 thou/uL (0.0-1.2); ABSOLUTE NEUTROPHILS 16.2 thou/uL (1.6-8.1); BASOPHILS 0.2 %; EOSINOPHILS 0.1 %; HEMATOCRIT 42.8 % (42.0-52.0); HEMOGLOBIN 14.3 gm/dL (14.0-18.0); LYMPHOCYTES 1.9 %; MCH 31.8 pg (26.0-34.0); MCHC 33.4 g/dL (28.0-37.0); MCV 95.3 fL (80.0-100.0); MPV 9.2 fl. (7.2-11.1); NUCLEATED RBCS 0 /100WBC; PLATELET COUNT* 197 thou/uL (150-400); POLYS 94.8 %; RBC 4.49 mil/uL (4.50-6.00); RDW-CV 13.5 % (10.5-14.5); WBC 17.1 thou/uL (4.0-11.0)
[2021-02-16 06:44] LABS: ALBUMIN 3.2 g/dL (3.4-5.0); CALCIUM 8.4 mg/dL (8.5-10.1); CREATININE 0.8 mg/dL (0.6-1.3); POTASSIUM 3.8 mmol/L (3.5-5.1); TOTAL BILIRUBIN 0.8 mg/dL (<0.1-1.0); TOTAL PROTEIN 5.6 g/dL (6.4-8.2)
[2021-02-16 10:32] LABS: BE -3.8 mmol/L (-2 to +3); PCO2 37.6 mmHg (35.0-45.0); pH 7.364 (7.340-7.450)
[2021-02-16 10:37] LABS: PO2 50.8 mmHg (75.0-100.0)
[2021-02-17] VITALS (22 sets, daily range): BP systolic 97–139; BP diastolic 54–91
[2021-02-17 04:58] LABS: BE 0.9 mmol/L (-2 to +3); PCO2 45.5 mmHg (35.0-45.0); PO2 91.4 mmHg (75.0-100.0); pH 7.382 (7.340-7.450)
[2021-02-17 05:52] LABS: ABSOLUTE BASOPHILS 0.1 thou/uL (0.0-0.2); ABSOLUTE LYMPHOCYTES 0.4 thou/uL (0.8-5.3); ABSOLUTE MONOCYTES 0.4 thou/uL (0.0-1.2); ABSOLUTE NEUTROPHILS 23.1 thou/uL (1.6-8.1); BASOPHILS 0.5 %; HEMATOCRIT 41.4 % (42.0-52.0); HEMOGLOBIN 13.6 gm/dL (14.0-18.0); LYMPHOCYTES 1.6 %; MCH 31.8 pg (26.0-34.0); MCHC 32.9 g/dL (28.0-37.0); MCV 96.6 fL (80.0-100.0); MONOCYTES 1.7 %; MPV 9.7 fl. (7.2-11.1); NUCLEATED RBCS 0 /100WBC; PLATELET COUNT* 177 thou/uL (150-400); POLYS 96.2 %; RBC 4.29 mil/uL (4.50-6.00); RDW-CV 13.6 % (10.5-14.5)
[2021-02-17 06:23] LABS: ALBUMIN 2.9 g/dL (3.4-5.0); CALCIUM 8.1 mg/dL (8.5-10.1); CREATININE 0.5 mg/dL (0.6-1.3); POTASSIUM 3.9 mmol/L (3.5-5.1); TOTAL BILIRUBIN 0.6 mg/dL (<0.1-1.0); TOTAL PROTEIN 5.2 g/dL (6.4-8.2)
[2021-02-17 06:24] LABS: MAGNESIUM 2.6 mg/dL (1.8-2.4); PHOSPHORUS* 4.5 mg/dL (2.5-4.9)
[2021-02-18] VITALS (29 sets, daily range): BP systolic 91–168; BP diastolic 49–99
[2021-02-18 06:05] LABS: ABSOLUTE BASOPHILS 0.2 thou/uL (0.0-0.2); ABSOLUTE LYMPHOCYTES 0.3 thou/uL (0.8-5.3); ABSOLUTE MONOCYTES 0.9 thou/uL (0.0-1.2); ABSOLUTE NEUTROPHILS 22.6 thou/uL (1.6-8.1); HEMATOCRIT 38.4 % (42.0-52.0); HEMOGLOBIN 12.8 gm/dL (14.0-18.0); LYMPHOCYTES 1.3 %; MCH 32.2 pg (26.0-34.0); MCHC 33.4 g/dL (28.0-37.0); MCV 96.5 fL (80.0-100.0); MONOCYTES 3.6 %; MPV 9.9 fl. (7.2-11.1); NUCLEATED RBCS 0 /100WBC; PLATELET COUNT* 157 thou/uL (150-400); POLYS 94.1 %; RBC 3.98 mil/uL (4.50-6.00); RDW-CV 13.6 % (10.5-14.5)
[2021-02-18 06:13] LABS: ALBUMIN 2.6 g/dL (3.4-5.0); CALCIUM 8.2 mg/dL (8.5-10.1); CREATININE 0.8 mg/dL (0.6-1.3); POTASSIUM 4.4 mmol/L (3.5-5.1); TOTAL BILIRUBIN 0.5 mg/dL (<0.1-1.0)
[2021-02-18 10:04] LABS: BE -0.9 mmol/L (-2 to +3); PCO2 37.3 mmHg (35.0-45.0); PO2 64.8 mmHg (75.0-100.0); pH 7.414 (7.340-7.450)
[2021-02-19] VITALS (37 sets, daily range): BP systolic 95–154; BP diastolic 56–93
[2021-02-19 03:53] LABS: HEMATOCRIT 37.3 % (42.0-52.0); HEMOGLOBIN 12.4 gm/dL (14.0-18.0); MCH 32.5 pg (26.0-34.0); MCHC 33.3 g/dL (28.0-37.0); MCV 97.5 fL (80.0-100.0); MPV 10.8 fl. (7.2-11.1); NUCLEATED RBCS 0 /100WBC; PLATELET COUNT* 123 thou/uL (150-400); RBC 3.83 mil/uL (4.50-6.00); WBC 29.8 thou/uL (4.0-11.0)
[2021-02-19 04:17] LABS: APTT 27.6 Seconds (25.0-31.3); PROTIME 10.4 Seconds (9.20-11.50)
[2021-02-19 04:29] LABS: ALBUMIN 2.9 g/dL (3.4-5.0); CALCIUM 7.8 mg/dL (8.5-10.1); CREATININE 0.8 mg/dL (0.6-1.3); PHOSPHORUS* 4.2 mg/dL (2.5-4.9); POTASSIUM 4.4 mmol/L (3.5-5.1); TOTAL BILIRUBIN 0.9 mg/dL (<0.1-1.0); TOTAL PROTEIN 5.1 g/dL (6.4-8.2)
[2021-02-19 06:17] LABS: ABSOLUTE LYMPHOCYTES 0.6 thou/uL (0.8-5.3); ABSOLUTE MONOCYTES 1.2 thou/uL (0.0-1.2)
[2021-02-19 06:18] LABS: PLATELET ESTIMATE ADEQUATE
[2021-02-19 07:22] LABS: BE -0.9 mmol/L (-2 to +3); PO2 73.9 mmHg (75.0-100.0); pH 7.318 (7.340-7.450)
[2021-02-19 07:30] LABS: PCO2 51.7 mmHg (35.0-45.0)
[2021-02-20] VITALS (18 sets, daily range): BP systolic 92–155; BP diastolic 46–82
[2021-02-20 04:24] LABS: ABSOLUTE LYMPHOCYTES 0.2 thou/uL (0.8-5.3); ABSOLUTE MONOCYTES 0.5 thou/uL (0.0-1.2); ABSOLUTE NEUTROPHILS 19.9 thou/uL (1.6-8.1); BASOPHILS 0.1 %; HEMATOCRIT 36.6 % (42.0-52.0); HEMOGLOBIN 11.9 gm/dL (14.0-18.0); LYMPHOCYTES 1.2 %; MCH 31.7 pg (26.0-34.0); MCHC 32.4 g/dL (28.0-37.0); MCV 97.7 fL (80.0-100.0); MONOCYTES 2.6 %; MPV 10.5 fl. (7.2-11.1); NUCLEATED RBCS 0 /100WBC; PLATELET COUNT* 110 thou/uL (150-400); POLYS 96.1 %; RBC 3.75 mil/uL (4.50-6.00); WBC 20.7 thou/uL (4.0-11.0)
[2021-02-20 04:53] LABS: ALBUMIN 2.8 g/dL (3.4-5.0); CALCIUM 8.7 mg/dL (8.5-10.1); CREATININE 0.7 mg/dL (0.6-1.3); POTASSIUM 4.5 mmol/L (3.5-5.1); TOTAL BILIRUBIN 0.5 mg/dL (<0.1-1.0); TOTAL PROTEIN 5.3 g/dL (6.4-8.2)
[2021-02-21] VITALS (12 sets, daily range): BP systolic 108–129; BP diastolic 57–84
[2021-02-21 05:39] LABS: HEMATOCRIT 36.5 % (42.0-52.0); HEMOGLOBIN 11.8 gm/dL (14.0-18.0); MCH 31.7 pg (26.0-34.0); MCHC 32.4 g/dL (28.0-37.0); MCV 97.8 fL (80.0-100.0); MPV 10.5 fl. (7.2-11.1); RBC 3.74 mil/uL (4.50-6.00); RDW-CV 13.8 % (10.5-14.5); WBC 23.1 thou/uL (4.0-11.0)
[2021-02-21 05:56] LABS: ALBUMIN 2.6 g/dL (3.4-5.0); CALCIUM 8.3 mg/dL (8.5-10.1); CREATININE 0.5 mg/dL (0.6-1.3); MAGNESIUM 2.1 mg/dL (1.8-2.4); POTASSIUM 4.5 mmol/L (3.5-5.1); TOTAL BILIRUBIN 0.7 mg/dL (<0.1-1.0); TOTAL PROTEIN 5.4 g/dL (6.4-8.2)
[2021-02-21 20:48] LABS: URINE BILIRUBIN NEGATIVE (Negative); URINE BLOOD 2+ (Negative); URINE COLOR YELLOW; URINE GLUCOSE-RANDOM NEGATIVE (Negative); URINE KETONES NEGATIVE (Negative); URINE NITRITE-REFLEX NEGATIVE (Negative); URINE PROTEIN NEGATIVE (Negative); URINE SPECIFIC GRAVITY 1.015 (1.005-1.030); URINE UROBILINOGEN 0.2 E.U./dl (0.2-1.0)
[2021-02-21 20:50] LABS: URINE CLARITY CLOUDY; URINE LEUKOCYTES-REFLEX 2+ (Negative)
[2021-02-21 20:51] LABS: BACTERIA-REFLEX None Seen /HPF (None Seen); CASTS None Seen /LPF (None Seen); CRYSTALS None Seen /LPF (None Seen); SQUAMOUS 0-3 Few /LPF (0-3); URINE RBC 0-2 Rare /HPF (0-2); URINE WBC-REFLEX 6-15 Few /HPF (0-5); YEAST-REFLEX Present (None Seen)
[2021-02-22] VITALS (23 sets, daily range): BP systolic 90–139; BP diastolic 52–85
[2021-02-22 05:34] LABS: ABSOLUTE BASOPHILS 0.2 thou/uL (0.0-0.2); ABSOLUTE LYMPHOCYTES 0.3 thou/uL (0.8-5.3); ABSOLUTE MONOCYTES 0.8 thou/uL (0.0-1.2); ABSOLUTE NEUTROPHILS 20.7 thou/uL (1.6-8.1); BASOPHILS 1.1 %; EOSINOPHILS 0.1 %; HEMATOCRIT 34.8 % (42.0-52.0); HEMOGLOBIN 11.6 gm/dL (14.0-18.0); LYMPHOCYTES 1.6 %; MCH 32.3 pg (26.0-34.0); MCHC 33.4 g/dL (28.0-37.0); MCV 96.6 fL (80.0-100.0); MONOCYTES 3.6 %; MPV 9.8 fl. (7.2-11.1); NUCLEATED RBCS 0 /100WBC; PLATELET COUNT* 115 thou/uL (150-400); POLYS 93.6 %; RBC 3.61 mil/uL (4.50-6.00); RDW-CV 13.4 % (10.5-14.5); WBC 22.1 thou/uL (4.0-11.0)
[2021-02-22 06:03] LABS: ALBUMIN 2.4 g/dL (3.4-5.0); CALCIUM 8.6 mg/dL (8.5-10.1); CREATININE 0.5 mg/dL (0.6-1.3); POTASSIUM 4.5 mmol/L (3.5-5.1); TOTAL BILIRUBIN 0.7 mg/dL (<0.1-1.0); TOTAL PROTEIN 5.1 g/dL (6.4-8.2)
[2021-02-23] VITALS (20 sets, daily range): BP systolic 97–143; BP diastolic 56–86
[2021-02-23 05:30] LABS: HEMATOCRIT 31.7 % (42.0-52.0); HEMOGLOBIN 10.8 gm/dL (14.0-18.0); MPV 10.2 fl. (7.2-11.1); NUCLEATED RBCS 0 /100WBC; PLATELET COUNT* 108 thou/uL (150-400); RBC 3.27 mil/uL (4.50-6.00); RDW-CV 14.2 % (10.5-14.5); WBC 16.8 thou/uL (4.0-11.0)
[2021-02-23 05:59] LABS: ALBUMIN 2.4 g/dL (3.4-5.0); CREATININE 0.6 mg/dL (0.6-1.3); MAGNESIUM 1.8 mg/dL (1.8-2.4); TOTAL BILIRUBIN 0.6 mg/dL (<0.1-1.0); TOTAL PROTEIN 5.1 g/dL (6.4-8.2)
[2021-02-23 06:07] LABS: POTASSIUM 3.5 mmol/L (3.5-5.1)
[2021-02-23 08:13] LABS: ABSOLUTE LYMPHOCYTES 0.5 thou/uL (0.8-5.3); ABSOLUTE MONOCYTES 0.7 thou/uL (0.0-1.2); ABSOLUTE NEUTROPHILS 15.6 thou/uL (1.6-8.1)
[2021-02-23 08:14] LABS: PLATELET ESTIMATE ADEQUATE
[2021-02-23 10:32] LABS: BE 7.2 mmol/L (-2 to +3); PCO2 42.8 mmHg (35.0-45.0); PO2 64.2 mmHg (75.0-100.0); pH 7.483 (7.340-7.450)
--- NOTE | 2021-02-23 14:22 | OP ---
[address] [address] OPERATIVE REPORT Name: SULTANA GRAFF Room: [address] IN M.R.#: [id number] Admission: 02/04/21 Attend Phys: Bala Ann MD Discharge: Date of : 68 Report #: [id number] THIS REPORT FOR: cc: Keri Gale MD, Tuongvan T. MD Harper, Charles B. III DO ~ DATE OF SURGERY: 02/20/2021 PREOPERATIVE DIAGNOSES: COVID-19 and hypoxic respiratory failure. POSTOPERATIVE DIAGNOSES: COVID-19 and hypoxic respiratory failure. PROCEDURES PERFORMED: Open tracheostomy, percutaneous endoscopic gastrostomy tube placement, and esophagogastroduodenoscopy. FINDINGS: Myrna appearing white plaques in the esophagus. A small 1 cm polyp in the anterior gastric body that was not biopsied and normal duodenum. ESTIMATED BLOOD LOSS: 5 mL SPECIMENS: None. INDICATIONS: The patient is a 51-year-old male who was intubated and sedated in the ICU secondary to hypoxic respiratory failure due to COVID-19. I was consulted for evaluation for tracheostomy and PEG tube placement. The patient had some improvement on the ventilator with improvement in his oxygenation; however, they were unable to completely liberate him from the vent. Therefore, we were asked to perform tracheostomy. I discussed the risks and benefits of tracheostomy and PEG tube placement with his and she agreed to proceed and signed the consent. DESCRIPTION OF PROCEDURE: After informed consent was obtained, the patient was brought to the operating room and placed in the supine position. SCDs were not placed. Preoperative Ancef was given. General anesthesia was continued as the patient was previously intubated. His ET tube was in place. He has 7.5 tube. The patient was prepped and draped in the usual sterile fashion. A surgical pause was held to confirm proper patient and procedure. Landmarks at the anterior neck and trachea were identified and marked. A 0.5% Marcaine was injected at the planned incision site. A 15 blade was used to create a 3 cm vertical midline incision. Dissection was carried through the subcutaneous tissue using cautery. The platysma was divided, which was quite thin. The subcutaneous fat was dissected down until the strap muscles were identified. These were bluntly in the midline. The thyroid isthmus was not within the field and was not obscuring the tracheal rings. We dissected down to the trachea with a combination of cautery and using a LigaSure small jaw to divide some tissue with care to stay in the midline. Excellent [place] [address] OPERATIVE REPORT Name: SULTANA GRAFF Room: [address] IN M.R.#: [id number] Admission: 02/04/21 Attend Phys: Bala Ann MD Discharge: Date of : 68 Report #: [id number] throughout the dissection until the trachea was reached. Once the trachea was identified. We palpated and identified the second and third tracheal rings between which we planned to make our incision. We then collected our supplies and performed a second timeout to ensure that anesthesia and our tech were ready for this portion of the procedure. We selected an 8.0 Bivona tracheostomy. The balloon was checked. We used an 11 blade to create a horizontal incision in the trachea after the balloon was let down and the ET tube. Metzenbaum scissors were then used to create downward incision through the tracheal ring to create a flap in the trachea. A 2-0 PDS stitch was placed through this tracheal flap. This was elevated. A Cric hook was then placed in the superior portion of the tracheotomy and the trachea was elevated. The 8.0 trach was then advanced into the airway. The balloon was inflated. However, the balloon despite multiple attempts to inflate with the syringe was not remaining inflated. We had end tidal CO2; however, the airway volumes were inadequate and the patient was having some desaturations. At that time, it was decided that the balloon was in some way inadequate or damaged, so this was removed once anesthesia was ready and the new trach was available. The ET tube was proximal to our tracheotomy and was available to be advanced; however, we did not need to do so. We placed the new trach, which was the same size and brand into the airway and again had problems with the balloon not inflating. We then coordinated a new trach once more. At this time, we used an 8.0 Shiley XLT. This was advanced into the airway. The balloon was inflated and remained inflated. We had end tidal waveform and his oxygenation immediately improved. At this point, the 2-0 PDS stitch was secured to his chest with Steri-Strips. The inferior portion of his incision was closed with 2 interrupted 4-0 Monocryl and the trach was secured using 4 individual stitches of 2-0 nylon. At this point, we then completely removed his ET tube and turned our attention towards the PEG portion of the case. The anterior abdomen was prepped and draped in the usual sterile fashion. A standard upper endoscopy scope, Olympus was passed through the oropharynx and into the esophagus. The esophagus was noted to have some scattered white plaques consistent with Myrna. Once the stomach was reached, the rugal folds were identified. There was a small 1 cm polyp in the anterior stomach, which was left in place and was not biopsied. The pylorus appeared normal. The first portion of the duodenum appeared normal. The remainder of the stomach appeared normal. We then palpated through the anterior abdomen in the left upper quadrant. We had excellent one-to-one motion between the abdominal wall and the stomach visualized by scope. We also had transillumination through the abdominal wall from the EGD scope. Some local was used to anesthetize the incision site. A needle was advanced through the skin and into the stomach lumen. The wire was advanced through this. The snare was then placed through the working port of the EGD and the wire was snared. This was then brought out with the scope through the mouth. This was attached to the 24-Greek PEG tube. This was again advanced and pulled from the abdomen. The skin incision was extended using an #11 blade to accommodate for the larger size of the PEG tube. The scope was then reinserted and the esophagus once [place] [address] OPERATIVE REPORT Name: SULTANA GRAFF [place] Room: [address] IN [facility].#: [id number] Admission: 02/04/21 Attend Phys: Bala Ann MD Discharge: Date of : 68 Report #: [id number] stomach was examined. The button on the PEG tube was well opposed to the stomach, this was at 2.5 cm at the skin. This was photographed. The scope was withdrawn and the stomach and esophagus were suctioned. The flange and clamp were placed on the PEG tube and it was sutured in place using nylon. The patient was then transferred back to his bed and back to the ICU in stable condition. EBL for the total procedure was 5 mL. There were no complications. The patient tolerated the procedure well. PRIMARY SURGEON: Hossein Gill DO MECHANICAL ENGINEERING PROFESSOR: Yue Mata DO [employer] MANAGER: Eros Patrikc, PGY-1. <ELECTRONICALLY SIGNED> By: Hossein Gill III, DO 02/23/21 1422 1406 [id number] Gill III, DO /nt
[2021-02-23 16:14] LABS: ABSOLUTE BASOPHILS 0.1 thou/uL (0.0-0.2); ABSOLUTE LYMPHOCYTES 0.1 thou/uL (0.8-5.3); ABSOLUTE MONOCYTES 0.2 thou/uL (0.0-1.2); ABSOLUTE NEUTROPHILS 16.1 thou/uL (1.6-8.1); BASOPHILS 0.8 %; EOSINOPHILS 0.1 %; HEMATOCRIT 34.4 % (42.0-52.0); HEMOGLOBIN 11.3 gm/dL (14.0-18.0); LYMPHOCYTES 0.7 %; MCH 32.3 pg (26.0-34.0); MCHC 32.7 g/dL (28.0-37.0); MCV 98.7 fL (80.0-100.0); MONOCYTES 1.2 %; MPV 9.3 fl. (7.2-11.1); NUCLEATED RBCS 0 /100WBC; PLATELET COUNT* 111 thou/uL (150-400); POLYS 97.2 %; RBC 3.49 mil/uL (4.50-6.00); RDW-CV 14.1 % (10.5-14.5); WBC 16.6 thou/uL (4.0-11.0)
[2021-02-23 16:22] LABS: CALCIUM 8.2 mg/dL (8.5-10.1); CREATININE 0.5 mg/dL (0.6-1.3); MAGNESIUM 1.6 mg/dL (1.8-2.4)
[2021-02-23 16:23] LABS: POTASSIUM 4.9 mmol/L (3.5-5.1)
[2021-02-23 20:52] LABS: PO2 63.7 mmHg (75.0-100.0)
[2021-02-23 21:02] LABS: pH 7.204 (7.340-7.450)
[2021-02-23 21:03] LABS: PCO2 74.8 mmHg (35.0-45.0)
[2021-02-24] VITALS (88 sets, daily range): BP systolic 91–147; BP diastolic 52–81
[2021-02-24 05:25] LABS: ABSOLUTE LYMPHOCYTES 0.1 thou/uL (0.8-5.3); ABSOLUTE MONOCYTES 0.1 thou/uL (0.0-1.2); ABSOLUTE NEUTROPHILS 12.4 thou/uL (1.6-8.1); BASOPHILS 0.2 %; HEMATOCRIT 32.6 % (42.0-52.0); HEMOGLOBIN 10.6 gm/dL (14.0-18.0); LYMPHOCYTES 0.9 %; MCH 32.2 pg (26.0-34.0); MCHC 32.5 g/dL (28.0-37.0); MCV 98.8 fL (80.0-100.0); MPV 9.2 fl. (7.2-11.1); NUCLEATED RBCS 0 /100WBC; PLATELET COUNT* 108 thou/uL (150-400); POLYS 97.9 %; RDW-CV 14.1 % (10.5-14.5); WBC 12.7 thou/uL (4.0-11.0)
[2021-02-24 05:39] LABS: APTT 29.4 Seconds (25.0-31.3); INR 1.1; PROTIME 11.6 Seconds (9.20-11.50)
[2021-02-24 05:52] LABS: ALBUMIN 2.2 g/dL (3.4-5.0); CALCIUM 8.4 mg/dL (8.5-10.1); CREATININE 0.7 mg/dL (0.6-1.3); MAGNESIUM 2.4 mg/dL (1.8-2.4); POTASSIUM 4.2 mmol/L (3.5-5.1); TOTAL BILIRUBIN 0.5 mg/dL (<0.1-1.0); TOTAL PROTEIN 5.9 g/dL (6.4-8.2)
[2021-02-24 06:08] LABS: PHOSPHORUS* 3.6 mg/dL (2.5-4.9)
[2021-02-24 07:51] LABS: BE 3.4 mmol/L (-2 to +3); PCO2 49.5 mmHg (35.0-45.0); PO2 75.4 mmHg (75.0-100.0); pH 7.383 (7.340-7.450)
[2021-02-24 13:00] LABS: URINE BILIRUBIN NEGATIVE (Negative); URINE BLOOD 2+ (Negative); URINE CLARITY CLEAR; URINE COLOR YELLOW; URINE GLUCOSE-RANDOM NEGATIVE (Negative); URINE KETONES NEGATIVE (Negative); URINE LEUKOCYTES-REFLEX NEGATIVE (Negative); URINE NITRITE-REFLEX NEGATIVE (Negative); URINE PROTEIN 1+ (Negative); URINE UROBILINOGEN 0.2 E.U./dl (0.2-1.0)
[2021-02-24 13:04] LABS: BACTERIA-REFLEX None Seen /HPF (None Seen); CASTS None Seen /LPF (None Seen); CRYSTALS None Seen /LPF (None Seen); SQUAMOUS NONE SEEN /LPF (0-3); URINE WBC-REFLEX 0-5 Rare /HPF (0-5)
[2021-02-24 20:24] LABS: CALCIUM 8.6 mg/dL (8.5-10.1); CREATININE 0.8 mg/dL (0.6-1.3); POTASSIUM 3.8 mmol/L (3.5-5.1)
[2021-02-25] VITALS (8 sets, daily range): BP systolic 123–157; BP diastolic 65–74
[2021-02-25 06:35] LABS: BE 9.4 mmol/L (-2 to +3); PCO2 VENOUS 40.8 mmHg (41.0-51.0); PO2 VENOUS 153.8 mmHg (35.0-45.0)
[2021-02-25 06:36] LABS: HEMATOCRIT 29.7 % (42.0-52.0); HEMOGLOBIN 9.7 gm/dL (14.0-18.0); MCH 32.3 pg (26.0-34.0); MCHC 32.7 g/dL (28.0-37.0); MCV 98.7 fL (80.0-100.0); MPV 10.1 fl. (7.2-11.1); WBC 14.3 thou/uL (4.0-11.0)
[2021-02-25 06:55] LABS: ALBUMIN 1.9 g/dL (3.4-5.0); CALCIUM 8.5 mg/dL (8.5-10.1); CREATININE 0.7 mg/dL (0.6-1.3); MAGNESIUM 2.1 mg/dL (1.8-2.4); POTASSIUM 3.9 mmol/L (3.5-5.1); TOTAL BILIRUBIN 0.5 mg/dL (<0.1-1.0); TOTAL PROTEIN 5.5 g/dL (6.4-8.2)
[2021-02-25 20:38] LABS: CALCIUM 8.3 mg/dL (8.5-10.1); CREATININE 0.7 mg/dL (0.6-1.3); MAGNESIUM 2.2 mg/dL (1.8-2.4); POTASSIUM 3.2 mmol/L (3.5-5.1)
[2021-02-26] VITALS (70 sets, daily range): BP systolic 114–173; BP diastolic 61–90
[2021-02-26 05:37] LABS: HEMATOCRIT 26.6 % (42.0-52.0); HEMOGLOBIN 8.8 gm/dL (14.0-18.0); MCH 32.1 pg (26.0-34.0); MCHC 32.9 g/dL (28.0-37.0); MCV 97.5 fL (80.0-100.0); MPV 9.5 fl. (7.2-11.1); NUCLEATED RBCS 0 /100WBC; PLATELET COUNT* 137 thou/uL (150-400); RBC 2.73 mil/uL (4.50-6.00); RDW-CV 13.8 % (10.5-14.5); WBC 14.2 thou/uL (4.0-11.0)
[2021-02-26 06:06] LABS: ALBUMIN 2.6 g/dL (3.4-5.0); CALCIUM 8.1 mg/dL (8.5-10.1); CREATININE 0.7 mg/dL (0.6-1.3); MAGNESIUM 2.2 mg/dL (1.8-2.4); POTASSIUM 3.2 mmol/L (3.5-5.1); TOTAL BILIRUBIN 0.6 mg/dL (<0.1-1.0); TOTAL PROTEIN 5.6 g/dL (6.4-8.2)
[2021-02-26 06:28] LABS: PHOSPHORUS* 3.5 mg/dL (2.5-4.9)
[2021-02-26 08:04] LABS: ABSOLUTE LYMPHOCYTES 0.3 thou/uL (0.8-5.3); ABSOLUTE MONOCYTES 0.1 thou/uL (0.0-1.2); ABSOLUTE NEUTROPHILS 13.8 thou/uL (1.6-8.1)
[2021-02-26 08:05] LABS: PLATELET ESTIMATE DECREASED
[2021-02-26 08:50] LABS: BE 0.3 mmol/L (-2 to +3); PCO2 44.3 mmHg (35.0-45.0); PO2 84.4 mmHg (75.0-100.0)
[2021-02-27] VITALS (48 sets, daily range): BP systolic 78–183; BP diastolic 45–103
[2021-02-27 07:12] LABS: HEMATOCRIT 26.3 % (42.0-52.0); HEMOGLOBIN 8.7 gm/dL (14.0-18.0); MCH 32.2 pg (26.0-34.0); MCHC 33.1 g/dL (28.0-37.0); MCV 97.3 fL (80.0-100.0); MPV 9.9 fl. (7.2-11.1); RBC 2.7 mil/uL (4.50-6.00); RDW-CV 13.9 % (10.5-14.5); WBC 9.2 thou/uL (4.0-11.0)
[2021-02-27 07:29] LABS: ALBUMIN 2.2 g/dL (3.4-5.0); CREATININE 0.5 mg/dL (0.6-1.3); MAGNESIUM 1.9 mg/dL (1.8-2.4); POTASSIUM 3.8 mmol/L (3.5-5.1); TOTAL BILIRUBIN 0.8 mg/dL (<0.1-1.0); TOTAL PROTEIN 5.1 g/dL (6.4-8.2)
[2021-02-27 13:02] LABS: BE -1.1 mmol/L (-2 to +3)
[2021-02-27 13:06] LABS: PCO2 55.6 mmHg (35.0-45.0); PO2 53.2 mmHg (75.0-100.0)
[2021-02-27 16:01] LABS: PO2 82.2 mmHg (75.0-100.0)
[2021-02-27 16:03] LABS: PCO2 102.8 mmHg (35.0-45.0); pH 7.041 (7.340-7.450)
[2021-02-27 18:18] LABS: BE -1.7 mmol/L (-2 to +3); PO2 91.5 mmHg (75.0-100.0)
[2021-02-27 18:23] LABS: PCO2 67.5 mmHg (35.0-45.0); pH 7.221 (7.340-7.450)
[2021-02-27 18:30] LABS: CALCIUM 8.1 mg/dL (8.5-10.1); CREATININE 0.6 mg/dL (0.6-1.3); POTASSIUM 4.6 mmol/L (3.5-5.1)
[2021-02-28] VITALS (53 sets, daily range): BP systolic 89–154; BP diastolic 39–77
[2021-02-28 04:52] LABS: ABSOLUTE LYMPHOCYTES 0.1 thou/uL (0.8-5.3); ABSOLUTE MONOCYTES 0.3 thou/uL (0.0-1.2); ABSOLUTE NEUTROPHILS 6.6 thou/uL (1.6-8.1); BASOPHILS 0.2 %; EOSINOPHILS 0.1 %; HEMATOCRIT 28.7 % (42.0-52.0); HEMOGLOBIN 9.7 gm/dL (14.0-18.0); LYMPHOCYTES 1.5 %; MCH 32.6 pg (26.0-34.0); MCHC 33.7 g/dL (28.0-37.0); MCV 96.6 fL (80.0-100.0); MONOCYTES 4.3 %; MPV 9.2 fl. (7.2-11.1); NUCLEATED RBCS 0 /100WBC; PLATELET COUNT* 115 thou/uL (150-400); POLYS 93.9 %; RBC 2.97 mil/uL (4.50-6.00)
[2021-02-28 05:10] LABS: PHOSPHORUS* 3.9 mg/dL (2.5-4.9)
[2021-02-28 05:20] LABS: ALBUMIN 2.3 g/dL (3.4-5.0); CALCIUM 7.8 mg/dL (8.5-10.1); CREATININE 0.6 mg/dL (0.6-1.3); TOTAL BILIRUBIN 0.4 mg/dL (<0.1-1.0); TOTAL PROTEIN 5.9 g/dL (6.4-8.2)
[2021-02-28 05:24] LABS: POTASSIUM 3.1 mmol/L (3.5-5.1)
[2021-02-28 08:06] LABS: BE 7.5 mmol/L (-2 to +3)
[2021-02-28 08:08] LABS: PCO2 80.4 mmHg (35.0-45.0); pH 7.275 (7.340-7.450)
[2021-02-28 13:14] LABS: BE 14.4 mmol/L (-2 to +3); PCO2 48.7 mmHg (35.0-45.0); PO2 86.9 mmHg (75.0-100.0); pH 7.521 (7.340-7.450)
[2021-03-01] VITALS (36 sets, daily range): BP systolic 87–125; BP diastolic 36–57
[2021-03-01 01:11] LABS: CALCIUM 8.3 mg/dL (8.5-10.1); CREATININE 0.5 mg/dL (0.6-1.3)
[2021-03-01 01:14] LABS: POTASSIUM 2.9 mmol/L (3.5-5.1)
[2021-03-01 05:43] LABS: ABSOLUTE EOSINOPHILS 0.1 thou/uL (0.0-0.7); ABSOLUTE LYMPHOCYTES 0.3 thou/uL (0.8-5.3); ABSOLUTE MONOCYTES 0.3 thou/uL (0.0-1.2); ABSOLUTE NEUTROPHILS 7.9 thou/uL (1.6-8.1); BASOPHILS 0.1 %; EOSINOPHILS 0.8 %; HEMATOCRIT 26.8 % (42.0-52.0); HEMOGLOBIN 9.1 gm/dL (14.0-18.0); LYMPHOCYTES 3.1 %; MCH 32.6 pg (26.0-34.0); MCHC 34.1 g/dL (28.0-37.0); MCV 95.6 fL (80.0-100.0); MONOCYTES 3.7 %; MPV 9.9 fl. (7.2-11.1); NUCLEATED RBCS 0 /100WBC; PLATELET COUNT* 172 thou/uL (150-400); POLYS 92.3 %; RBC 2.81 mil/uL (4.50-6.00); RDW-CV 13.8 % (10.5-14.5); WBC 8.6 thou/uL (4.0-11.0)
[2021-03-01 06:02] LABS: PHOSPHORUS* 2.6 mg/dL (2.5-4.9)
[2021-03-01 06:21] LABS: ALBUMIN 2.3 g/dL (3.4-5.0); CALCIUM 8.1 mg/dL (8.5-10.1); CREATININE 0.5 mg/dL (0.6-1.3); POTASSIUM 3.7 mmol/L (3.5-5.1); TOTAL BILIRUBIN 0.6 mg/dL (<0.1-1.0); TOTAL PROTEIN 5.7 g/dL (6.4-8.2)
[2021-03-01 06:24] LABS: APTT 24.9 Seconds (25.0-31.3); PROTIME 10.3 Seconds (9.20-11.50)
[2021-03-01 08:59] LABS: BE 13.9 mmol/L (-2 to +3); PCO2 48.1 mmHg (35.0-45.0); PO2 99.4 mmHg (75.0-100.0)
[2021-03-01 13:16] LABS: BE 17.7 mmol/L (-2 to +3); PO2 103.8 mmHg (75.0-100.0); pH 7.495 (7.340-7.450)
[2021-03-01 13:22] LABS: PCO2 57.6 mmHg (35.0-45.0)
[2021-03-01 14:09] LABS: CALCIUM 8.4 mg/dL (8.5-10.1); CREATININE 0.6 mg/dL (0.6-1.3); MAGNESIUM 2.1 mg/dL (1.8-2.4); POTASSIUM 3.7 mmol/L (3.5-5.1)
[2021-03-01 16:40] LABS: BE 13.2 mmol/L (-2 to +3); PO2 118.7 mmHg (75.0-100.0); pH 7.434 (7.340-7.450)
[2021-03-01 16:46] LABS: PCO2 60.7 mmHg (35.0-45.0)
[2021-03-01 17:14] LABS: CALCIUM 8.6 mg/dL (8.5-10.1); CREATININE 0.7 mg/dL (0.6-1.3); POTASSIUM 3.7 mmol/L (3.5-5.1)
[2021-03-02] VITALS (47 sets, daily range): BP systolic 93–151; BP diastolic 47–70
[2021-03-02 04:35] LABS: HEMOGLOBIN 9.6 gm/dL (14.0-18.0); MCHC 32.9 g/dL (28.0-37.0); MCV 97.1 fL (80.0-100.0); MPV 10.1 fl. (7.2-11.1); RBC 2.99 mil/uL (4.50-6.00); RDW-CV 13.9 % (10.5-14.5); WBC 14.7 thou/uL (4.0-11.0)
[2021-03-02 05:22] LABS: ALBUMIN 2.5 g/dL (3.4-5.0); CALCIUM 8.5 mg/dL (8.5-10.1); CREATININE 0.6 mg/dL (0.6-1.3); MAGNESIUM 2.3 mg/dL (1.8-2.4); POTASSIUM 3.7 mmol/L (3.5-5.1); TOTAL BILIRUBIN 0.6 mg/dL (<0.1-1.0); TOTAL PROTEIN 6.2 g/dL (6.4-8.2)
[2021-03-02 08:36] LABS: BE 9.4 mmol/L (-2 to +3); PO2 75.6 mmHg (75.0-100.0)
[2021-03-02 08:39] LABS: PCO2 59.2 mmHg (35.0-45.0)
[2021-03-02 16:41] LABS: CALCIUM 8.3 mg/dL (8.5-10.1); CREATININE 0.6 mg/dL (0.6-1.3); POTASSIUM 3.6 mmol/L (3.5-5.1)
[2021-03-02 17:48] LABS: CALCIUM 8.8 mg/dL (8.5-10.1); CREATININE 0.5 mg/dL (0.6-1.3); POTASSIUM 3.6 mmol/L (3.5-5.1)
[2021-03-03] VITALS (67 sets, daily range): BP systolic 81–150; BP diastolic 38–54
[2021-03-03 05:24] LABS: HEMATOCRIT 26.1 % (42.0-52.0); HEMOGLOBIN 8.6 gm/dL (14.0-18.0); MCHC 33.1 g/dL (28.0-37.0); MPV 9.1 fl. (7.2-11.1); RBC 2.69 mil/uL (4.50-6.00); RDW-CV 14.1 % (10.5-14.5); WBC 16.5 thou/uL (4.0-11.0)
[2021-03-03 05:38] LABS: ALBUMIN 2.3 g/dL (3.4-5.0); CALCIUM 8.6 mg/dL (8.5-10.1); CREATININE 0.6 mg/dL (0.6-1.3); MAGNESIUM 2.3 mg/dL (1.8-2.4); POTASSIUM 3.7 mmol/L (3.5-5.1); TOTAL BILIRUBIN 0.5 mg/dL (<0.1-1.0)
[2021-03-03 07:22] LABS: PO2 88.3 mmHg (75.0-100.0); pH 7.389 (7.340-7.450)
[2021-03-03 07:25] LABS: PCO2 62.3 mmHg (35.0-45.0)
[2021-03-03 09:23] LABS: URINE BILIRUBIN NEGATIVE (Negative); URINE BLOOD NEGATIVE (Negative); URINE CLARITY CLEAR; URINE COLOR YELLOW; URINE GLUCOSE-RANDOM NEGATIVE (Negative); URINE KETONES NEGATIVE (Negative); URINE LEUKOCYTES-REFLEX NEGATIVE (Negative); URINE NITRITE-REFLEX NEGATIVE (Negative); URINE PROTEIN NEGATIVE (Negative); URINE UROBILINOGEN 0.2 E.U./dl (0.2-1.0)
[2021-03-03 14:59] LABS: CALCIUM 8.5 mg/dL (8.5-10.1); CREATININE 0.5 mg/dL (0.6-1.3); POTASSIUM 3.4 mmol/L (3.5-5.1)
[2021-03-04] VITALS (77 sets, daily range): BP systolic 80–178; BP diastolic 45–74
[2021-03-04 04:17] LABS: ALBUMIN 2.4 g/dL (3.4-5.0); CALCIUM 9.3 mg/dL (8.5-10.1); CREATININE 0.9 mg/dL (0.6-1.3); MAGNESIUM 2.4 mg/dL (1.8-2.4); PHOSPHORUS* 6.1 mg/dL (2.5-4.9); TOTAL BILIRUBIN 0.7 mg/dL (<0.1-1.0); TOTAL PROTEIN 6.6 g/dL (6.4-8.2)
[2021-03-04 04:24] LABS: POTASSIUM 5.2 mmol/L (3.5-5.1)
[2021-03-04 06:19] LABS: HEMOGLOBIN 8.2 gm/dL (14.0-18.0); MCH 31.3 pg (26.0-34.0); MCHC 31.6 g/dL (28.0-37.0); MCV 99.1 fL (80.0-100.0); MPV 9.5 fl. (7.2-11.1); NUCLEATED RBCS 1 /100WBC; RBC 2.62 mil/uL (4.50-6.00); RDW-CV 14.6 % (10.5-14.5)
[2021-03-04 06:26] LABS: PLATELET COUNT* 438 thou/uL (150-400); WBC 35.5 thou/uL (4.0-11.0)
[2021-03-04 08:05] LABS: ABSOLUTE EOSINOPHILS 0.7 thou/uL (0.0-0.7); ABSOLUTE LYMPHOCYTES 5.3 thou/uL (0.8-5.3); ABSOLUTE MONOCYTES 1.8 thou/uL (0.0-1.2); ABSOLUTE NEUTROPHILS 27.7 thou/uL (1.6-8.1); PLATELET ESTIMATE INCREASED
[2021-03-04 08:19] LABS: BE 6.7 mmol/L (-2 to +3); PO2 84.7 mmHg (75.0-100.0)
[2021-03-04 08:21] LABS: PCO2 78.6 mmHg (35.0-45.0); pH 7.271 (7.340-7.450)
[2021-03-04 12:40] LABS: ABSOLUTE EOSINOPHILS 0.1 thou/uL (0.0-0.7); ABSOLUTE LYMPHOCYTES 1.3 thou/uL (0.8-5.3); ABSOLUTE MONOCYTES 0.6 thou/uL (0.0-1.2); ABSOLUTE NEUTROPHILS 19.8 thou/uL (1.6-8.1); BASOPHILS 0.2 %; EOSINOPHILS 0.5 %; HEMOGLOBIN 8.1 gm/dL (14.0-18.0); LYMPHOCYTES 5.9 %; MCH 31.9 pg (26.0-34.0); MCHC 32.5 g/dL (28.0-37.0); MCV 98.1 fL (80.0-100.0); MONOCYTES 2.8 %; NUCLEATED RBCS 3 /100WBC; PLATELET COUNT* 369 thou/uL (150-400); POLYS 90.6 %; RBC 2.54 mil/uL (4.50-6.00); RDW-CV 14.6 % (10.5-14.5); WBC 21.9 thou/uL (4.0-11.0)
[2021-03-04 13:48] LABS: CALCIUM 8.9 mg/dL (8.5-10.1); CREATININE 0.5 mg/dL (0.6-1.3); POTASSIUM 5.1 mmol/L (3.5-5.1)
[2021-03-04 15:34] LABS: BE 6.3 mmol/L (-2 to +3); PO2 67.2 mmHg (75.0-100.0); pH 7.376 (7.340-7.450)
[2021-03-04 15:35] LABS: PCO2 56.7 mmHg (35.0-45.0)
[2021-03-04 17:38] LABS: CALCIUM 8.9 mg/dL (8.5-10.1); CREATININE 0.4 mg/dL (0.6-1.3); POTASSIUM 5.1 mmol/L (3.5-5.1)
[2021-03-04 20:40] LABS: CALCIUM 8.7 mg/dL (8.5-10.1); CREATININE 0.5 mg/dL (0.6-1.3); POTASSIUM 4.4 mmol/L (3.5-5.1)
[2021-03-05] VITALS (7 sets, daily range): BP systolic 107–127; BP diastolic 46–66
[2021-03-05 04:44] LABS: ALBUMIN 2.3 g/dL (3.4-5.0); CREATININE 0.6 mg/dL (0.6-1.3); MAGNESIUM 2.2 mg/dL (1.8-2.4); POTASSIUM 4.7 mmol/L (3.5-5.1); TOTAL BILIRUBIN 0.4 mg/dL (<0.1-1.0)
[2021-03-05 04:51] LABS: ABSOLUTE BASOPHILS 0.1 thou/uL (0.0-0.2); ABSOLUTE MONOCYTES 0.8 thou/uL (0.0-1.2); ABSOLUTE NEUTROPHILS 23.1 thou/uL (1.6-8.1); BASOPHILS 0.5 %; EOSINOPHILS 0.1 %; HEMATOCRIT 20.4 % (42.0-52.0); LYMPHOCYTES 4.2 %; MCH 31.8 pg (26.0-34.0); MCHC 31.9 g/dL (28.0-37.0); MCV 99.7 fL (80.0-100.0); MPV 8.6 fl. (7.2-11.1); NUCLEATED RBCS 2 /100WBC; PLATELET COUNT* 357 thou/uL (150-400); POLYS 92.2 %; RBC 2.05 mil/uL (4.50-6.00); RDW-CV 14.9 % (10.5-14.5); WBC 25.1 thou/uL (4.0-11.0)
[2021-03-05 12:27] LABS: BE 7.9 mmol/L (-2 to +3); PO2 64.4 mmHg (75.0-100.0); pH 7.353 (7.340-7.450)
[2021-03-05 12:31] LABS: PCO2 63.7 mmHg (35.0-45.0)
[2021-03-05 13:29] LABS: ABSOLUTE LYMPHOCYTES 0.9 thou/uL (0.8-5.3); ABSOLUTE MONOCYTES 0.7 thou/uL (0.0-1.2); ABSOLUTE NEUTROPHILS 14.2 thou/uL (1.6-8.1); BASOPHILS 0.2 %; EOSINOPHILS 0.1 %; HEMATOCRIT 22.2 % (42.0-52.0); HEMOGLOBIN 7.2 gm/dL (14.0-18.0); LYMPHOCYTES 5.9 %; MCH 31.3 pg (26.0-34.0); MCHC 32.5 g/dL (28.0-37.0); MCV 96.2 fL (80.0-100.0); MONOCYTES 4.5 %; MPV 8.1 fl. (7.2-11.1); NUCLEATED RBCS 1 /100WBC; PLATELET COUNT* 290 thou/uL (150-400); POLYS 89.3 %; RBC 2.31 mil/uL (4.50-6.00); RDW-CV 15.4 % (10.5-14.5); WBC 15.9 thou/uL (4.0-11.0)
[2021-03-05 13:42] LABS: APTT 23.6 Seconds (25.0-31.3); CALCIUM 8.6 mg/dL (8.5-10.1); CREATININE 0.5 mg/dL (0.6-1.3); MAGNESIUM 2.2 mg/dL (1.8-2.4); POTASSIUM 4.1 mmol/L (3.5-5.1); PROTIME 10.1 Seconds (9.20-11.50)
[2021-03-05 17:38] LABS: CALCIUM 8.8 mg/dL (8.5-10.1); CREATININE 0.5 mg/dL (0.6-1.3); POTASSIUM 4.1 mmol/L (3.5-5.1)
[2021-03-06] VITALS (35 sets, daily range): BP systolic 77–172; BP diastolic 53–82
[2021-03-06 05:40] LABS: ABSOLUTE LYMPHOCYTES 0.8 thou/uL (0.8-5.3); ABSOLUTE MONOCYTES 0.5 thou/uL (0.0-1.2); ABSOLUTE NEUTROPHILS 12.1 thou/uL (1.6-8.1); BASOPHILS 0.1 %; EOSINOPHILS 0.1 %; HEMATOCRIT 21.7 % (42.0-52.0); HEMOGLOBIN 7.1 gm/dL (14.0-18.0); LYMPHOCYTES 5.6 %; MCH 31.3 pg (26.0-34.0); MCHC 32.5 g/dL (28.0-37.0); MCV 96.3 fL (80.0-100.0); MONOCYTES 3.6 %; NUCLEATED RBCS 1 /100WBC; PLATELET COUNT* 285 thou/uL (150-400); POLYS 90.6 %; RBC 2.26 mil/uL (4.50-6.00); WBC 13.4 thou/uL (4.0-11.0)
[2021-03-06 05:59] LABS: ALBUMIN 2.1 g/dL (3.4-5.0); CALCIUM 8.6 mg/dL (8.5-10.1); CREATININE 0.4 mg/dL (0.6-1.3); PHOSPHORUS* 3.3 mg/dL (2.5-4.9); POTASSIUM 4.4 mmol/L (3.5-5.1); TOTAL BILIRUBIN 0.4 mg/dL (<0.1-1.0); TOTAL PROTEIN 5.5 g/dL (6.4-8.2)
[2021-03-06 06:09] LABS: HEMOGLOBIN 6.5 gm/dL (14.0-18.0)
[2021-03-06 07:02] LABS: APTT 20.4 Seconds (25.0-31.3); PROTIME 10.2 Seconds (9.20-11.50)
[2021-03-06 08:08] LABS: BE 3.5 mmol/L (-2 to +3); pH 7.341 (7.340-7.450)
[2021-03-06 08:12] LABS: PCO2 56.6 mmHg (35.0-45.0)
[2021-03-07] VITALS (14 sets, daily range): BP systolic 100–162; BP diastolic 38–79
[2021-03-07 14:27] LABS: ABSOLUTE BASOPHILS 0.1 thou/uL (0.0-0.2); ABSOLUTE LYMPHOCYTES 0.6 thou/uL (0.8-5.3); ABSOLUTE MONOCYTES 0.4 thou/uL (0.0-1.2); ABSOLUTE NEUTROPHILS 12.7 thou/uL (1.6-8.1); ALBUMIN 2.1 g/dL (3.4-5.0); BASOPHILS 0.8 %; CALCIUM 8.4 mg/dL (8.5-10.1); CREATININE 0.4 mg/dL (0.6-1.3); HEMOGLOBIN 7.1 gm/dL (14.0-18.0); MCH 31.4 pg (26.0-34.0); MCHC 32.3 g/dL (28.0-37.0); MCV 97.3 fL (80.0-100.0); MONOCYTES 3.2 %; MPV 8.2 fl. (7.2-11.1); NUCLEATED RBCS 6 /100WBC; PLATELET COUNT* 262 thou/uL (150-400); POTASSIUM 4.3 mmol/L (3.5-5.1); RBC 2.26 mil/uL (4.50-6.00); RDW-CV 15.4 % (10.5-14.5); TOTAL BILIRUBIN 0.4 mg/dL (<0.1-1.0); TOTAL PROTEIN 5.3 g/dL (6.4-8.2); WBC 13.8 thou/uL (4.0-11.0)
[2021-03-07 14:28] LABS: BE 5.9 mmol/L (-2 to +3); PO2 65.6 mmHg (75.0-100.0)
--- NOTE | 2021-03-07 16:15 | EKG ---
[place] [address] ELECTROCARDIOGRAM REPORT Name: SULTANA GRAFF Room: [address] ADM IN .R.#: [id number] Admission: 02/04/21 Attend Phys: Bala Ann, Discharge: Date of : 68 Date of Service: 03/06/[address] Report #: [id number] THIS REPORT FOR: //name// [facility] Test Date: 2021-03-06 Test Time: 09:22:13 Pat Name: SULTANA GRAFF Department: Room: [address] Gender: M Change Analyst: UNKNOWN : 1970 Requested By: Bala Ann Order Number: [id number] Reading MD: Lion Nunez Measurements Intervals [place] Rate: 69 P: 38 GA: 135 QRS: 4 QRSD: 104 T: 37 QT: 428 QTc: 459 Interpretive Statements Sinus rhythm Ventricular premature complex Compared to ECG 02/04/2021 16:50:15 Ventricular premature complex(es) now present Myocardial infarct finding no longer present Electronically Signed On 03-07-2021 16:15:35 SU[employer] by Lion Nunez [email or web address] <ELECTRONICALLY SIGNED> By: Lion Nunez MD, [facility] 03/07/21 1615 1 1 Lion Nunez MD, [facility] /EPI
[2021-03-08] VITALS (21 sets, daily range): BP systolic 94–210; BP diastolic 44–78
[2021-03-08 05:11] LABS: ABSOLUTE LYMPHOCYTES 0.4 thou/uL (0.8-5.3); BASOPHILS 0.1 %; POLYS 93.4 %
[2021-03-08 05:13] LABS: ABSOLUTE MONOCYTES 0.5 thou/uL (0.0-1.2); ABSOLUTE NEUTROPHILS 12.7 thou/uL (1.6-8.1); HEMOGLOBIN 7.5 gm/dL (14.0-18.0); MCH 31.5 pg (26.0-34.0); MCHC 32.4 g/dL (28.0-37.0); MCV 97.3 fL (80.0-100.0); MONOCYTES 3.5 %; MPV 8.6 fl. (7.2-11.1); NUCLEATED RBCS 10 /100WBC; PLATELET COUNT* 265 thou/uL (150-400); RBC 2.37 mil/uL (4.50-6.00); RDW-CV 15.6 % (10.5-14.5); WBC 13.6 thou/uL (4.0-11.0)
[2021-03-08 05:27] LABS: APTT 22.5 Seconds (25.0-31.3); PROTIME 10.2 Seconds (9.20-11.50)
[2021-03-08 05:32] LABS: ALBUMIN 2.1 g/dL (3.4-5.0); CALCIUM 8.4 mg/dL (8.5-10.1); CREATININE 0.4 mg/dL (0.6-1.3); MAGNESIUM 2.3 mg/dL (1.8-2.4); POTASSIUM 4.1 mmol/L (3.5-5.1); TOTAL BILIRUBIN 0.4 mg/dL (<0.1-1.0); TOTAL PROTEIN 5.4 g/dL (6.4-8.2)
[2021-03-08 09:15] LABS: BE 8.4 mmol/L (-2 to +3); PO2 61.6 mmHg (75.0-100.0); pH 7.395 (7.340-7.450)
[2021-03-08 09:17] LABS: PCO2 57.8 mmHg (35.0-45.0)
[2021-03-08 16:07] LABS: CALCIUM 8.5 mg/dL (8.5-10.1); CREATININE 0.4 mg/dL (0.6-1.3); MAGNESIUM 2.4 mg/dL (1.8-2.4); POTASSIUM 3.7 mmol/L (3.5-5.1)
[2021-03-08 17:16] LABS: BE 9.8 mmol/L (-2 to +3); PO2 109.4 mmHg (75.0-100.0); pH 7.345 (7.340-7.450)
[2021-03-08 17:18] LABS: PCO2 69.9 mmHg (35.0-45.0)
[2021-03-09] VITALS (62 sets, daily range): BP systolic 86–153; BP diastolic 36–69
[2021-03-09 04:50] LABS: HEMATOCRIT 25.9 % (42.0-52.0); HEMOGLOBIN 8.3 gm/dL (14.0-18.0); MCH 31.7 pg (26.0-34.0); MCHC 32.1 g/dL (28.0-37.0); MCV 98.8 fL (80.0-100.0); MPV 8.3 fl. (7.2-11.1); NUCLEATED RBCS 0 /100WBC; PLATELET COUNT* 299 thou/uL (150-400); RBC 2.62 mil/uL (4.50-6.00)
[2021-03-09 05:12] LABS: PREALBUMIN 20.9 mg/dL (18.0-35.7)
[2021-03-09 05:14] LABS: PHOSPHORUS* 3.3 mg/dL (2.5-4.9)
[2021-03-09 05:28] LABS: ALBUMIN 2.1 g/dL (3.4-5.0); CALCIUM 8.6 mg/dL (8.5-10.1); CREATININE 0.4 mg/dL (0.6-1.3); MAGNESIUM 2.4 mg/dL (1.8-2.4); TOTAL BILIRUBIN 0.4 mg/dL (<0.1-1.0); TOTAL PROTEIN 5.4 g/dL (6.4-8.2)
[2021-03-09 07:28] LABS: ABSOLUTE LYMPHOCYTES 1.3 thou/uL (0.8-5.3); ABSOLUTE MONOCYTES 0.4 thou/uL (0.0-1.2); ABSOLUTE NEUTROPHILS 17.3 thou/uL (1.6-8.1); MYELOCYTES 1 %
[2021-03-09 07:29] LABS: PLATELET ESTIMATE ADEQUATE
[2021-03-09 10:05] LABS: BE 10.6 mmol/L (-2 to +3); PO2 63.3 mmHg (75.0-100.0); pH 7.394 (7.340-7.450)
[2021-03-09 10:19] LABS: PCO2 62.3 mmHg (35.0-45.0)
[2021-03-09 17:37] LABS: BE 7.2 mmol/L (-2 to +3); PO2 67.4 mmHg (75.0-100.0)
[2021-03-09 17:42] LABS: PCO2 83.7 mmHg (35.0-45.0); pH 7.259 (7.340-7.450)
[2021-03-09 20:26] LABS: BE 9.4 mmol/L (-2 to +3); PO2 82.6 mmHg (75.0-100.0); pH 7.349 (7.340-7.450)
[2021-03-09 20:30] LABS: PCO2 68.7 mmHg (35.0-45.0)
[2021-03-10] VITALS (8 sets, daily range): BP systolic 106–144; BP diastolic 45–59
[2021-03-10 04:38] LABS: ABSOLUTE LYMPHOCYTES 0.6 thou/uL (0.8-5.3); ABSOLUTE MONOCYTES 0.7 thou/uL (0.0-1.2); ABSOLUTE NEUTROPHILS 25.5 thou/uL (1.6-8.1); HEMATOCRIT 28.5 % (42.0-52.0); LYMPHOCYTES 2.3 %; MCH 31.5 pg (26.0-34.0); MCHC 31.7 g/dL (28.0-37.0); MCV 99.2 fL (80.0-100.0); MONOCYTES 2.6 %; MPV 8.9 fl. (7.2-11.1); NUCLEATED RBCS 0 /100WBC; PLATELET COUNT* 252 thou/uL (150-400); POLYS 95.1 %; RBC 2.87 mil/uL (4.50-6.00); RDW-CV 16.4 % (10.5-14.5); WBC 26.8 thou/uL (4.0-11.0)
[2021-03-10 04:47] LABS: BE 3.2 mmol/L (-2 to +3)
[2021-03-10 04:49] LABS: PCO2 121.1 mmHg (35.0-45.0); pH 7.083 (7.340-7.450)
[2021-03-10 04:50] LABS: PO2 < 23.5 mmHg (75.0-100.0)
[2021-03-10 05:09] LABS: ALBUMIN 2.2 g/dL (3.4-5.0); CALCIUM 8.4 mg/dL (8.5-10.1); CREATININE 0.2 mg/dL (0.6-1.3); POTASSIUM 4.4 mmol/L (3.5-5.1); TOTAL BILIRUBIN 0.6 mg/dL (<0.1-1.0); TOTAL PROTEIN 5.8 g/dL (6.4-8.2)
== END 2021-03-10 04:52 | DRG 4 ==
LOC: M.ERS 16:25 → M.TBA-ER 18:20 → M.ICU 18:20 → M.TBA-ER 02-05 06:04 → M.ICU 02-05 12:29
PROVIDERS: Emergency Medicine Emergency Medical Services; Internal Medicine; Internal Medicine Critical Care Medicine; Nurse Practitioner Family; Pediatrics; Student in an Organized Health Care Education/Training Program; Surgery; ADMIT Internal Medicine; ATTEND Internal Medicine
DX: A41.89 Other specified sepsis (principal); U07.1 COVID-19; J12.82 Pneumonia due to coronavirus disease 2019; J80 Acute respiratory distress syndrome; I26.99 Other pulmonary embolism without acute cor pulmonale; E44.1 Mild protein-calorie malnutrition; J93.9 Pneumothorax, unspecified; N17.9 Acute kidney failure, unspecified; I82.411 Acute embolism and thrombosis of right femoral vein; K21.9 Gastro-esophageal reflux disease without esophagitis; R73.9 Hyperglycemia, unspecified; F17.210 Nicotine dependence, cigarettes, uncomplicated; F90.9 Attention-deficit hyperactivity disorder, unspecified type; R04.0 Epistaxis; K59.00 Constipation, unspecified; D69.6 Thrombocytopenia, unspecified; I95.9 Hypotension, unspecified; D64.9 Anemia, unspecified; Z68.34 Body mass index [BMI] 34.0-34.9, adult